=== PATIENT | female | born 1950 | race Caucasian/White ===

== ENCOUNTER 2023-09-11 06:10 | Day surgery (SDC) | payer MEDICARE, BC, SELFPAY ==
[2023-09-11] VITALS (10 sets, daily range): BP systolic 131–170; BP diastolic 57–98; PULSE 57–69; RESP 16; TEMP 36.3; O2SAT 94–97; BMI 31.7
--- OUTSIDE RECORDS SUMMARY | 2023-09-11 06:13 | XMS_ITS | Encounter Summary ---
Author Organization [facility] Address [address] [place] [address] Care Team Providers Care Pharmacist Technician Name Role Phone Brea Augustin P.A.-C. Primary Care Provider Encounter Details Date Type Department Care Team (Latest Contact Info) Description 08/14/2023 8:01 AM CDT - 08/14/2023 11:59 PM CDT Hospital Encounter Department of Laboratory Medicine in [place], [place] [address] [place] [address] Rubens Rivera Jr., D.O. [address] [place] [phone] Chronic Kidney Disease Stage 1 Glomerular Filtration Rate Greater Than 90; Hypertension And Chronic Kidney Disease Stage 1; Glomerulonephritis Focal Segment Chronic; Diabetes Mellitus Type 2 With Diabetic Nephropathy (HCC) Discharge Disposition: Home or Self Care Social History Tobacco Use Types Packs/Day Years Used Date Smoking Tobacco: Never Smokeless Tobacco: Never Alcohol Use Standard Drinks/Week Comments Yes 6 (1 standard drink = 0.6 oz pur e alcohol) 1-2 drinks per week on average [facility] Utilities Answer Date Recorded In the past 12 months has [employer], gas, oil, or water Jajah threatened to shut off services in your home? No 07/20/2023 Humiliation, Afraid, Rape, and Kick questionnair e Answer Date Recorded Within the last year, have y ou been afraid of your partner or ex-partner? No 08/19/2022 Within the last year, have y ou been humiliated or emotionally abused in other ways by your partner or ex-partner? No Within the last year, have y ou been kicked, hit, slapped, or otherwise physically hurt by your partner or ex-partner? No 08/19/2022 Within the last year, have y ou been raped or forced to have any kind of sexual activity by your partner or ex-partner? No 08/19/2022 Social Connection and Isolat ion Panel [NHANES] Answer Date Recorded In a typical week, how many times do you talk on the phone with family, friends, or neighbors? More than three times a week 08/19/2022 How often do you get togethe r with friends or relatives? More than three times a week 08/19/2022 How often do you attend chur ch or samaritan services? 1 to 4 times per year 08/19/2022 Do you belong to any clubs o r organizations such as adventism groups, unions, fraternal or athletic groups, or school groups? Yes 08/19/2022 How often do you attend meet ings of the clubs or organizations you belong to? More than 4 times per year 08/19/2022 Are you , , di vorced, , never , or living with a partner? 08/19/2022 AUDIT-C Answer Date Recorded Q1: How often do you have a drink containing alc ohol? 2-3 times a week 08/19/2022 Q2: How many drinks containi ng alcohol do you have on a typical day when you are drinking? 1 or 2 08/19/2022 Q3: How often do you have si x or more drinks on one occasion? Never 08/19/2022 Overall Financial Resource Strain (CARDIA) Answe r Date Recorded How hard is it for you to pa y for the very basics like food, housing, medical care, and heating? Somewhat hard 08/19/2022 PHQ-2 Answer Date Recorded PHQ-2 Score 0 07/16/2023 [facility] - Occupational Stress Questionnaire Answer Date Recorded Do you feel stress - tense, restless, nervous, or anxious, or unable to sleep at night because your mind is troubled all the time - these days? To some extent 08/19/2022 Exercise Vital Sign Answer Date Recorde d On average, how many days pe r week do you engage in moderate to strenuous exercise (like a brisk walk)? 3 days 08/19/2022 On average, how many minutes do you engage in exercise at this level? 30 min 08/19/2022 Hunger Vital Sign Answer Date Recorded Within the past 12 months, y ou worried that your food would run out before you got the money to buy more. Never true 07/20/19 24 Within the past 12 months, t he food you bought just didn't last and you didn't have money to get more. Never true 07/20/2023 PRAPARE - Transportation Answer Date Re corded In the past 12 months, has l ack of transportation kept you from medical appointments or from getting medications? No 07/08 In the past 12 months, has l ack of transportation kept you from meetings, work, or from getting things needed for daily living? No 07/20/2023 Nutrition Answer Date Recorded On average, how many serving s of fruits and vegetables do you eat per day (serving size is equal to 1 cup or approximately the size of a tennis ball)? 4-5 08/19/2022 Dental Answer Date Recorded Dental: Regular Dentist No 08/02/19 Employment Answer Date Recorded Employment status Retired 08/19/2022 Housing Stability Answer Date Recorded What is your living situation today? I have a [facility] place to live 07/20/2023 Education Answer Date Recorded What is the highest level of school you have completed or the highest degree you have received? Some college, no degree 01/27/2021 Sex and Gender Information Value Date Recorded Sex Assigned at Female 08/05/2021 8:00 AM CDT Gender Identity Female 08/05/2021 8:00 AM CDT Sexual Orientation Straight 08/05/2021 8: 00 AM CDT documented as of this encounter Medications at Time of Discharge Medication Sig Dispensed Refills Start Date End Date alcohol swabs pads, medicated Use as needed for diabetes control 1500 each 3 08/23/2022 amLODIPine (NORVASC) 10 mg tabletIndications:Hype rtension Essential Primary Take 1 tablet (10 mg total) by mouth daily. 90 tablet 3 11/07/2022 anastrozole (ARIMIDEX) 1 mg tablet Take 1 mg by mouth daily. Swallow whole with a drink of water. aspirin [address] tablet aspirin 81 mg oral enteric coated tablet daily 01/06/2010 blood sugar diagnostic strips 1 test daily. 100 test 3 08/31/2022 CALCIUM CARB/VIT D3/MINERALS (CALCIUM-VITAMIN D ORAL) Calcium 600+D daily 01/06/2010 cephalexin (KEFLEX) 500 mg capsule Take 2,000 mg by mouth once. 1 hour before dental appointment 08/10/2022 cholecalciferol, vitamin D3, 25 mcg (1,000 Unit) tablet Take 25 mcg by mouth daily. DIPHENHYDRAMINE HCL (BENADRYL ALLERGY ORAL) Benadryl Allergy Sinus as needed 01/06/2010 glipiZIDE (GLUCOTROL XL) 10 mg 24 hr tablet Take 1 tablet (10 mg total) by mouth daily with breakfast. 90 tablet 3 12/04/2022 glipiZIDE (GLUCOTROL XL) 5 mg 24 hr tabletIndications:Diab etes Mellitus Type 2 Hyperglycemia (HCC) Take 1 tablet (5 mg total) by mouth daily. Take at dinner. 90 tablet 3 12/04/2022 guaiFENesin (MUCINEX) 600 mg 12 hr tablet Take 600 mg by mouth 2 (two) times a day as needed for cough. loratadine (for_CLARITIN) 10 mg tablet Take 1 tablet by mouth as needed. 03/02/2014 losartan (COZAAR) 100 mg tabletIndications:Hype rtension Essential Primary Take 1 tablet (100 mg total) by mouth daily. 90 tablet 3 09/26/2022 metFORMIN (GLUCOPHAGE) 1,000 mg tabletIndications:Diab etes Mellitus Type 2 Hyperglycemia (HCC) Take 1 tablet (1,000 mg total) by mouth 2 (two) times a day with meals. 180 tablet 3 10/09/2022 omega 6-jow-rnv-fish oil 100-160-1,000 mg capsule Take by mouth daily. 03/02/2014 simvastatin (ZOCOR) 20 mg tabletIndications:Hype rlipidemia take 1 tablet at bedtime 90 tablet 3 05/16/2023 UNABLE TO FIND Take 1 each by mouth daily. Med Name: Arthrozene VITAMIN B COMPLEX ORAL Take 2 capsules by mouth daily. lancets 1 each daily. 30 each 11 08/31/2022 08/31/2023 documented as of this encounter Plan of Treatment Upcoming Encounters Date Type Department Care Team (Late st Contact Info) Description 10/08/2023 10:40 AM CDT Office Visit Department of Community Internal Medicine in [place], [place] [address] [phone] Brea Augustin P.A.-C. 300 [facility] [address] [phone] documented as of this encounter Procedures Procedure Name Priority Date/Time Associated Diagnosis Comments ALBUMIN, RANDOM, U Routine 08/14/2023 8: 08 AM CDT Chronic Kidney Disease Stage 1 Glomerular Filtration Rate Greater Than 90 Hypertension And Chronic Kidney Disease Stage 1 Glomerulonephritis Focal Segment Chronic Diabetes Mellitus Type 2 With Diabetic Nephropathy (HCC) URINALYSIS WITH MICROSCOPIC Routine 08/14/2023 8:08 AM CDT Chronic Kidney Disease Stage 1 Glomerular Filtration Rate Greater Than 90 Hypertension And Chronic Kidney Disease Stage 1 Glomerulonephritis Focal Segment Chronic Diabetes Mellitus Type 2 With Diabetic Nephropathy (HCC) documented in this encounter Results * (ABNORMAL) Urinalysis, with Microscopic: Urine, Voided (08/14/2023 8:08 AM CDT) Source Urine, Urine, Voided 08/14/2023 8:30 AM CDT FB60 Clarity Clear Clear 08/14/2023 8:32 AM CDT FB60 Color Yellow 08/14/2023 8:32 AM CDT FB60 Comment: ----REFERENCE VALUE---- Colorless Yellow Mey Blood Negative Negative 08/14/2023 8:32 AM CDT FB60 Nitrite Negative Negative 08/14/2023 8:32 AM CDT FB60 Leukocyte Esterase Small(A) Negative 08/14/2023 8:32 AM CDT FB60 Protein 100(A) mg/dL 08/14/2023 8:32 AM CDT FB60 Comment: ----REFERENCE VALUE---- Negative Trace Glucose Negative Negative mg/dL 08/14/2023 8:32 AM CDT FB60 Ketones, QI(U) Negative Negative mg/dL 08/14/2023 8:32 AM CDT FB60 Bilirubin Negative Negative 08/14/2023 8:32 AM CDT FB60 pH 6.5 5.0 - 8.0 08/14/2023 8:32 AM CDT FB60 Specific [place] 1.020 1.001 - 1.035 08/14/2023 8:32 AM CDT FB60 Urobilinogen 0.2 0.2 - 1.0 mg/dL 08/14/2023 8:32 AM CDT FB60 White Blood Cells Occ-3 /hpf 08/14/2023 8:55 AM CDT FB60 Comment: ----REFERENCE VALUE---- Males: 0-3 Females: 0-10 Unknown: 0-10 Red Blood Cells Occ-2 0 - 2 /hpf 8:55 AM CDT FB60 Squamous Cells Occ-3 /hpf 08/14/2023 8:55 AM CDT FB60 Urine (Urine, Voided) 08/14/2023 8:08 AM CDT 08/14/2023 8:30 AM CDT Rubens Rivera Jr., D.O. LAB URINE OR DERABLES [facility] [address] [place] [address], [facility] FB60 [facility] [place] [address] * (ABNORMAL) Albumin, Random, Urine (08/14/2023 8:08 AM CDT) Microalbumin 275.0 mg/L 08/14/2023 2:01 PM CDT OWAT Creatinine 114 mg/dL 08/14/2023 2:01 PM CDT [facility] Albumin/Creatinin e Ratio 241(H) <25 mg/g 08/14/2023 2:01 PM CDT [facility] Urine (Urine, Voided) 08/14/2023 8:08 AM CDT 08/14/2023 1:14 PM CDT Lucia Shaver Jr..O. LAB URINE OR DERABLES [facility] [address] [place] [address], [facility] OWAT [facility] [place] [address] [place] [address] documented in this encounter Visit Diagnoses Diagnosis Chronic Kidney Disease Stage 1 Glomerular Filtration Rate Greater Than 90 Hypertension And Chronic Kidney Disease Stage 1 Glomerulonephritis Focal Segment Chronic Diabetes Mellitus Type 2 With Diabetic Nephropathy (HCC) documented in this encounter Additional Health Concerns Assessment Noted Time PHQ-9 Depression Total Score: 1 06/27/19 19 8:44 AM CDT documented as of this encounter Care Teams Pharmacist Technician Relationship Specialty Start Date End Date Brea Augustin P.A.-C. [address] [place] [address] [place] [phone] PCP - General 04/13/22 documented as of this encounter
--- OUTSIDE RECORDS SUMMARY | 2023-09-11 06:13 | XMS_ITS | Encounter Summary ---
Author Organization [facility] Address [address] [place] [address] Care Team Providers Care Content Development Manager Name Role Phone Brea Augustin P.A.-C. Primary Care Provider Reason for Visit * Appointment Request (Routine) - Closed Specialty Diagnoses / Procedures Referred By Karen lee Referred To Contact Nephrology and Hypertension Referral ID Status Reason Start Date Expiration Date Visits Re quested Visits Authorized [id number] Closed 07/19/2023 07/18/2024 1 1 Encounter Details Date Type Department Care Team (Latest Contact Info) Description 08/27/2023 1:30 PM CDT External Outreach Division of Nephrology and Hypertension in [place], [place] [address] [place] [address] Rubens Rivera Jr., D.O. 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 1 to 4 times per year 08/19/2022 Do you belong to any clubs o r organizations such as spiritism groups, unions, fraternal or athletic groups, or [...] Answer Date Recorded PHQ-2 Score 0 07/16/2023 [facility] - Occupational [...] Date Recorded Dental: Regular Dentist No 08/02/19 22 Employment Answer Date Recorded Employment status Retired 08/19/2022 Housing Stability Answer Date Recorded What is your living situation today? I have a [facility] place to live 07/20/2023 Education Answer Date [...] AM CDT documented as of this encounter Last Filed Vital Signs Vital Sign Reading Time Taken Comments Blood Pressure 135/64 08/27/2023 1:40 PM CDT Pulse 64 08/27/2023 1:40 PM CDT Temperature - - Respiratory Rate - - Oxygen Saturation - - Inhaled Oxygen Concentration - - Weight 76.3 kg (168 lb 3.4 oz) 08/27/2023 1:40 P M CDT Height 157.4 cm (5' 1.97) 08/27/2023 1:40 PM CD T Body Mass Index 30.8 08/27/2023 1:40 PM CDT documented in this encounter Progress Notes * Rubens Rivera Jr., D.ONiya - 08/27/2023 1:30 PM CDT Referring Provider: Brea Augustin P.A.-C. SUBJECTIVE REASON FOR VISIT [facility] Follow-up regards CKD, on the background of biopsy-proven focal sclerosis, diabetes mellitus hypertension HISTORY OF PRESENT ILLNESS Ms. Clarke is a 73 y.o. 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 She is struggling with a cough. This has been going on now for over 2-1/2 weeks. She has a greenishsputum production. She was prescribed nasal Atrovent, which she can not orchestrate due to hand weakness. Similarly, she could not use the Flonase either. She is using some Mucinex, and non sedating antihistamines as Claritin. This is not helping. She has not had fevers or chills. She has not shortof breath. She does not have allergies to sulfa medications. Her blood pressures been reasonable, she has had no orthostatic issues. She is careful with the sodium has a bit of left lower extremity lymphedema, and has varicose veins on the left side. She has not had orthostatic issues. She has had no hypoglycemic events recently in her hemoglobin A1c is 7.6%. She just got a steroid injection in her left knee. Constitutionally she feels relatively well. I note that she is visited with our oncologists, and noevidence of recurrence has been noted, she is on Arimidex. 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 Swallow whole with a drink of water.,Disp: , Rfl: aspirin [address] tablet, aspirin 81 mg oral enteric coated tablet daily, Disp: , Rfl: blood sugar diagnostic strips, 1 test daily., Disp: 100 test, Rfl: 3 CALCIUM CARB/VIT D3/MINERALS (CALCIUM-VITAMIN D ORAL), Calcium 600+D daily, Disp: , Rfl: cephalexin (KEFLEX) 500 mg capsule, Take 2,000 mg by mouth once. 1 hour before dental appointment, Disp: , Rfl: cholecalciferol, vitamin D3, 25 mcg (1,000 Unit) tablet, Take 25 mcg by mouth daily., Disp: , Rfl: DIPHENHYDRAMINE HCL (BENADRYL ALLERGY ORAL), Benadryl Allergy Sinus as needed, Disp: , Rfl: glipiZIDE (GLUCOTROL XL) 10 mg 24 hr tablet, Take 1 tablet (10 mg total) by mouth daily with breakfast., Disp: 90 tablet, Rfl: 3 glipiZIDE (GLUCOTROL XL) 5 mg 24 hr tablet, Take 1 tablet (5 mg total) by mouth daily. Take at dinner., Disp: 90 tablet, Rfl: 3 guaiFENesin (MUCINEX) 600 mg 12 hr tablet, Take 600 mg by mouth 2 (two) times a day as needed for cough., Disp: , Rfl: ipratropium (ATROVENT) 21 mcg (0.03 %) nasal spray, Administer 2 sprays into each nostril 2 (two) times a day., Disp: 30 mL, Rfl: 12 lancets, 1 each daily., Disp: 30 each, Rfl: 11 loratadine (for_CLARITIN) 10 mg tablet, Take 1 tablet by mouth as needed. , Disp: , Rfl: losartan (COZAAR) 100 mg tablet, Take 1 tablet (100 mg total) by mouth daily., Disp: 90 tablet, Rfl: 3 metFORMIN (GLUCOPHAGE) 1,000 mg tablet, Take 1 tablet (1,000 mg total) by mouth 2 (two) times a daywith meals., Disp: 180 tablet, Rfl: 3 omega 4-ipr-ite-fish oil 100-160-1,000 mg capsule, Take by mouth daily. , Disp: , Rfl: simvastatin (ZOCOR) 20 mg tablet, take 1 tablet at bedtime, Disp: 90 tablet, Rfl: 3 sulfamethoxazole-trimethoprim (BACTRIM DS) 800-160 mg per tablet, Take 1 tablet by mouth 2 (two) times a day for 5 days., Disp: 10 tablet, Rfl: 0 UNABLE TO FIND, Take 1 each by mouth daily. Med Name: Arthrozene, Disp: , Rfl: VITAMIN B COMPLEX ORAL, Take 2 capsules by mouth daily., Disp: , Rfl: REVIEW OF SYSTEMS All other systems reviewed and are negative. OBJECTIVE BP 135/64 Pulse 64 Ht 157.4 cm Wt 76.3 kg BMI 30.80 kg/m?? PHYSICAL EXAMINATION General: Awake alert oriented HEENT: MAYA, EOMI, Mucous membranes moist, no oral lesions Neck: No Masses, No Bruits Lungs: Clear to ascultation Heart: Regular Rate and Rhythm, No ectopy Murmurs or rubs Abdomen: Soft, Non-tender Extremities: No cyanosis, No clubbing: No edema Neuro: Cranial Nerves intact, Gait is normal, strength grossly normal Skin: no suspicious lesions identified Psychiatric: Normal affect DIAGNOSTICS Note serum creatinine normal at 0.6 mg/dL, excellent lipid panel, hemoglobin A1c 7.6% microalbumin to creatinine ratio 171 milligrams/gram ASSESSMENT / PLAN #1 Hypertension And Chronic Kidney Disease Stage 1 This is on the background of biopsy-proven focal sclerosis, as well as mild diabetic nephropathy. She does have microalbuminuria. Going forward: 1. Goal blood pressures less than 120s over 80s 2. Low-sodium diet less than 2500 mg sodium per day 3. Goal glycosylated hemoglobin less than 8% 4. No NSAIDs or Epps 2 inhibitors 5. Return to Nephrology Clinic in 6 months. #2 Diabetes Mellitus Type 2 With Diabetic Nephropathy (HCC) Excellent glycemic control I congratulated her. 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 Total time: 30 minutes Counseling Time: 25 minutes Rubens Rivera Jr., D.O. documented in this encounter Plan of Treatment Upcoming Encounters Date Type Department Care Team (Late st Contact Info) Description 10/08/2023 10:40 AM CDT Office Visit Department of Community Internal Medicine in [place], [place] [address] [place] [phone] Brea Augustin P.A.-C. 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 (HCC) Expected: 02/27/2024, Expires: 08/26/2024 Hemoglobin A1c Lab Routine Hypertension And Chronic Kidney Disease Stage 1 Diabetes Mellitus Type 2 With Diabetic Nephropathy (HCC) 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 (HCC) Expected: 02/27/2024, Expires: 08/26/2024 Iron and Total Iron-Binding Capacity Lab Routine Hypertension And Chronic Kidney Disease Stage 1 Diabetes Mellitus Type 2 With Diabetic Nephropathy (HCC) 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 (HCC) Expected: 02/27/2024, Expires: 08/26/2024 Lipid Panel Lab Routine Hypertension And Chronic Kidney Disease Stage 1 Diabetes Mellitus Type 2 With Diabetic Nephropathy (HCC) 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 (HCC) Expected: 02/27/2024, Expires: 11/26/2024 Albumin, Random, Urine Lab Routine Hypertension And Chronic Kidney Disease Stage 1 Diabetes Mellitus Type 2 With Diabetic Nephropathy (HCC) 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 (HCC) Expected: 02/27/2024, Expires: 08/26/2024 Parathyroid Hormone (PTH) Lab Routine Hypertension And Chronic Kidney Disease Stage 1 Diabetes Mellitus Type 2 With Diabetic Nephropathy (HCC) 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 (HCC) Expected: 02/27/2024, Expires: 08/26/2024 Renal Function Panel Lab Routine Hypertension And Chronic Kidney Disease Stage 1 Diabetes Mellitus Type 2 With Diabetic Nephropathy (HCC) 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 (HCC) Expected: 02/27/2024, Expires: 08/26/2024 Urinalysis, with Microscopic: Urine, Voided Lab Routine Hypertension And Chronic Kidney Disease Stage 1 Diabetes Mellitus Type 2 With Diabetic Nephropathy (HCC) 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 [address] [place] [phone] PCP - General 04/13/22 documented as of this encounter
--- OUTSIDE RECORDS SUMMARY | 2023-09-11 06:13 | XMS_ITS | Clinical Summary ---
Author Organization [email or web address] [facility] Address [place], [place] [address] Care Team Providers Care Hooker Off Name Role Phone Brea Augustin PA-C Primary Care Provider [phone] Kenia Rdz RN Unavailable Mukund Mckeon LINE DANCER Unavailable [phone] Sonia Ceballos GAGGERMAN Unavailable Selina Partida MD Unavailable [phone] Allergies Active Allergy Reactions Criticality Noted Date Comments Amoxicillin Rash 03/13/2014 Cefadroxil Rash 03/13/2014 Latex Rash 03/06/2018 Penicillins Hives 03/06/2018 Sodium Hypochlorite Solution Other - Jeff cribe In Comment Field 06/26/2018 Adhesive *Unknown 03/13/2014 Medications Medication Sig Dispensed Refills Start Date End Date Status loratadine (CLARITIN) 10 mg tablet Take 10 mg by mouth once daily if needed. Active metFORMIN (GLUCOPHAGE) 500 mg tablet Take 1,000 mg by mouth 2 times daily with meals. Active losartan (COZAAR) 100 mg tablet Take 100 mg by mouth once daily. Active simvastatin (ZOCOR) 20 mg tablet Take 20 mg by mouth at bedtime. Active glipiZIDE (GLUCOTROL XL) 10 mg Extended-Release tablet Take 5 mg by mouth 2 times daily with meals. Active CALCIUM CARBONATE/VITAMIN D3 (CALCIUM 600 + D,3, ORAL) Take 1 tablet by mouth once daily. Active aspirin (ECOTRIN) 81 mg enteric coated tablet Take 81 mg by mouth once daily. Active diphenhydrAMINE (BENADRYL) 25 mg capsule Take 25 mg by mouth once daily if needed. Active omega 5-jld-xoi-fish oil (FISH OIL) 100-160-1,000 mg cap Take 1 capsule by mouth once daily. Active amLODIPine (NORVASC) 10 mg tablet Take 10 mg by mouth once daily. 11/07/2022 Active cholecalciferol (VITAMIN D3) 1,000 unit tablet Take 25 mcg by mouth once daily. Active guaiFENesin (MUCINEX) 600 mg Extended-Release tablet Take 600 mg by mouth 2 times daily if needed. Active VITAMIN B COMPLEX ORAL Take 2 Capsules by mouth once daily. Active cephalexin (KEFLEX) 500 mg capsule Take 2,000 mg by mouth. 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 90 Tablet 3 01/30/2023 Active ipratropium (ATROVENT NASAL) 21 mcg (0.03 %) nasal spray Inhale 2 Sprays into affected nostril(s). 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 01/02/2023 Cancer Staging:Pathologic stage from 01/30/2023:Stage IA(pT1c, pN0(sn), cM0, G2, ER+, MO-, HER2-) - Signed by Selina Partida MD on 01/30/2023 Encounters Date Type Department Care Team Description 08/24/2023 Telephone [facility] [address] [place] [address] Sonia Ceballos NP Appointment 08/23/2023 2:00 PM CDT Office Visit [facility] [address] [place] [phone] Selina Partida MD Follow Up (Malignant neoplasm of central portion of left breast in female, estrogen receptor positive (HC)//) 08/23/2023 Travel from Last 3 Months Social History Tobacco Use Types Packs/Day Years Used Date Smoking Tobacco: Never Alcohol Use Standard Drinks/Week Comments No 0 (1 standard drink = 0.6 oz pur e alcohol) Social Connections Answer Date Recorded Frequency of Communication with Friends and Fami ly Not on file 02/21/2023 Sex and Gender Information Value Date Recorded Sex Assigned at Not on file Gender Identity Not on file Sexual Orientation Not on file Obstetrics History Last Filed Vital Signs Vital Sign Reading Time Taken Comments Blood Pressure 144/67 08/23/2023 1:47 PM CDT Pulse 70 08/23/2023 1:47 PM CDT Temperature 36.4 ??C (97.6 ??F) 08/23/2023 1:47 PM CD T Respiratory Rate 18 08/23/2023 1:47 PM CDT Oxygen Saturation 97% 08/23/2023 1:47 PM CDT Inhaled Oxygen Concentration - - Weight 76.7 kg (169 lb) 08/23/2023 1:47 PM CDT Height 157 cm (5' 1.81) 12/14/2022 7:35 AM CDT Body Mass Index 31.1 12/14/2022 7:35 AM CDT Plan of Treatment Upcoming Encounters Date Type Department Care Team (Late st Contact Info) Description 10/17/2023 8:00 AM CDT Hospital Encounter [facility] [address], [place] [address] Ashely Ayers MD [address] [place] [phone] 10/17/2023 8:00 AM CDT - 10/17/2023 8:40 AM CDT Surgery [facility] [address] [place] [address] Ashely Ayers MD [address] [place] [address] COLONOSCOPY 02/25/2024 9:30 AM MARINE ELECTRICIAN HELPER Office Visit [address] [place] [phone] Selina Partida MD [address] [place] [id number] Scheduled Procedures Name Priority Associated Diagnoses Date/Ti me COLONOSCOPY SCREENING 10/17/2023 8:00 AM CDT Health Maintenance Due Date Last Done Comments Pneumococcal series for age 65+ (1 of 2 - PCV) 1954 Tdap 1959 Depression screening for age 12+ 1960 BMI (ht and wt on same day) for age 18+ 1966 Hepatitis C screening for ag e 18-79 1966 Zoster (shingles) series for age 50+ (1 of 2) 1967 Tetanus booster 1968 Lipids for age 45-75 1993 Medicare Wellness for age 65+ 2013 COVID-19 vaccine series ( season) 2023 02/07/2023, 02/14/2022, 08/01/2021, Additional history exists Influenza for age 65+ 12/09/2023 Colonoscopy through age 75 03/11/2028 03/11/2018 DEXA/DXA scan for age 65+ Completed 02/07/2023 Medical Devices Implanted Type Area News Producer Device Identifier Shelf Expiration Date Model / Serial / Lot Cement Simplex W/ Tobramycin - [id number] Implanted:Qty: 2 on 03/17/2014 by Randy Sierra MD at [facility] Right: Knee D-DAVID 05/10/2015 [id number] / / [id number] - [id number] Implanted:Qty: 1 on 03/17/2014 by Randy Sierra MD at [facility] Right: Knee DEPUY 05/10/2023 [id number] / / [id number] Description:Femoral Posterio r Stabilized [id number] - [id number] Implanted:Qty: 1 on 03/17/2014 by Randy Sierra MD at [facility] Right: Knee DEPUY 01/08/2024 [id number] / / [id number] Description:Attune Tibial Ba se Fixed Bearing [id number] - [id number] Implanted:Qty: 1 on 03/17/2014 by Randy Sierra MD at [facility] Right: Knee DEPUY 04/09/2018 [id number] / / [id number] Description:Attune Tibial In sert Fixed Bearing Posterior Stabilized [id number] - [id number] Implanted:Qty: 1 on 03/17/2014 by Randy Sierra MD at [facility] Right: Knee DEPUY 07/08/2018 [id number] / / [id number] Description:Attune Patella M edialized Dome Procedures Procedure Name Priority Date/Time Associated Diagnosis Comments XR DXA BONE DENSITY 2 SITES AXIAL Routine 02/07/2023 1:21 PM CDT Malignant neoplasm of central portion of left breast in female, estrogen receptor positive (HC) COLONOSCOPY 03/11/2018 7:12 AM MARINE ELECTRICIAN HELPER from Last 3 Months or Most Recently Relevant to Health Maintenance Results * (ABNORMAL) XR DXA BONE DENSITY 2 SITES AXIAL (02/07/2023 1:21 PM CDT) Anatomical Region Laterality Modality Spine, HIPS, HIPL, HIPR Computed Radiography Impressions 02/08/2023 2:11 PM CDT Osteopenia. ?? Risk of fracture is not elevated. RECOMMENDATIONS: The National Osteoporosis Foundation recommends pharmacologic treatment for patients with T-scores of -2.5 or less, patients with prior history of fragility fractures, or patients with 10-year probability of greater than 3% at hips or greater than 20% of suffering major osteoporotic fractures. Recommend continued optimization of calcium and vitamin D intake through dietary means and/or supplementation and regular exercise. Repeat scan recommended in 2 years. ?? Narrative 02/08/2023 2:11 PM CDT For Patients: Results are automatically released to your [email or web address]) account once available, in compliance with federal regulations. This means that you may see your results before your provider has had a chance to review them. Please allow 2-3 business days for your provider to comment on the results. XR DXA Bone Mineral Density (BMD) EXAM LOCATION: [address] [phone] PATIENT NAME: Tamara Clarke DATE OF : 1950 EXAM DATE: 02/07/2023 REQUESTING PROVIDER: Selina Partida ?? 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 It is not possible to compare data generated on one scanner to data from another because there are not standards in DXA equipment. This applies even if the two scanners are made by the same cheese weigher. PROCEDURE: Dual-energy x-ray absorptiometry performed with routine technique. Reporting is completed in the form of a T-score. The T-score represents the standard deviation from peak bone mass based on young healthy adult. A Z-score is used for diagnosis in premenopausal women, and for men under the age of 50. FINDINGS: RESULT LUMBAR SPINE L1 - L4 BMD: 1.352 g/cm2 T-Score: + 1.4 RESULTS FEMUR Left femoral neck BMD: 0.855 g/cm2 T-Score: - 1.3 Right femoral neck BMD: 0.888 g/cm2 T-Score: - 1.1 Left hip BMD: 1.017 g/cm2 T-Score: + 0.1 Right hip BMD: 1.022 g/cm2 T-Score: + 0.1 WHO criteria: Normal: T-score at or above -1 SD Osteopenia: T-score between -1.1 and -2.4 SD Osteoporosis: T-score at or below -2.5 SD FRAX RISK CALCULATION (USED FOR OSTEOPENIA ONLY): 10-year probability of major osteoporotic fracture: 10.2%. 10-year probability of hip fracture: 1.8%. Selina Partida MD DEXA * COLONOSCOPY (03/11/2018 7:12 AM MARINE ELECTRICIAN HELPER) 03/11/2018 7:12 AM MARINE ELECTRICIAN HELPER Narrative Transcriptions Darshan Reyes MD - 03/11/2018 7:47 AM CST Patient Name: Tamara Clarke Procedure Date: 03/11/2018 Gender: Female Date of : 1950 Admit Type: Ambulatory Procedure: Colonoscopy Proceduralist: Rylan [facility] Indications/Pre-Op Diagnosis: Screening for colorectal malignantneoplasm Medications: Propofol per Anesthesia Procedure Description: The patient had risks, benefits and alternatives explained to andgave informed consent. The patient had a stable cardiopulmonary status and judged an adequate candidate for conscious sedation. The colonoscope was passed through the anus and advanced to thececum, identified by appendiceal orifice and ileocecal valve. Thecolonoscopy was performed without difficulty. The patient tolerated the procedure well. The quality of the bowel preparation was excellent. Complications: No immediate complications. Estimated Blood Loss & Specimen: Estimated blood loss: none. Specimen collected - Yes and sent to Laboratory Findings: The perianal and digital rectal examinations were normal. A few small-mouthed diverticula were found in the sigmoid colon. A 6 mm polyp was found in the splenic flexure. The polyp was sessile. The polyp was removed with a cold snare. Resection and retrieval were complete. Impressions/Post-Op Diagnosis: - Diverticulosis in the sigmoid colon. - One 6 mm polyp at the splenic flexure, removed with a cold snare. Resected and retrieved. Recommendation: - Telephone my office for pathology results in 1 week. Moderate Sedation: Deep sedation per anesthesia Rylan Reyes, 03/11/2018 7:47:31 AM This report has been signed electronically. Note Initiated On: 03/11/2018 7:12 AM Darshan Reyes MD PROCEDURE ORD from Last 3 Months or Most Recently Relevant to Health Maintenance Advance Directives Documents on File Type Date Recorded Patient Security Associate Expl anation Healthcare Directive 04/11/2017 018 * Full Code (Latest Code Status on File) Date Activated Date Inactivated Comments 01/01/2023 10:15 AM 01/01/2023 5:11 PM Question Answer Comments Code Status Discussion: Reviewed Preferences * Full Code Date Activated Date Inactivated Comments 12/25/2022 6:36 AM 12/25/2022 6:59 PM Question Answer Comments Code Status Discussion: Reviewed Preferences * Full Code Date Activated Date Inactivated Comments 03/11/2018 6:37 AM 03/11/2018 11:08 AM Care Teams Hooker Off Relationship Specialty Start Date End Date Brea Augustin PA-C [address] [place] [phone] PCP - General Physician Shredding Specialist 12/05/22 Kenia Rdz, RN [address] [place] [address] Nurse Navigator - Oncology Registered Nurse 01/17/23 Mukund Mckeon LSW [address] [place] [address] Carpenter Helper Hematology and Oncology 01/30/23 Sonia Ceballos, GAGGERMAN [address] [place] [address] Nurse Practitioner Hematology and Oncology 01/30/23 Selina Partida MD [address] [place], [place] [phone] Medical Oncologist Hematology and Oncology 01/30/23
--- OUTSIDE RECORDS SUMMARY | 2023-09-11 06:13 | XMS_ITS ---
Author Organization [facility] Address [address] [place] [address] Care Team Providers Care Spiral Binder Name Role Phone Unavailable Unavailable Unavailable Surgery Details Not on file Complications Check Surgery Details section. Procedure Estimated Blood Loss Check Surgery Details section. Procedure Findings Check Surgery Details section. Procedure Specimens Taken Check Surgery Details section.
--- OUTSIDE RECORDS SUMMARY | 2023-09-11 06:13 | XMS_ITS | Clinical Summary ---
Author Organization [facility] Address [address] [place] [address] Care Team Providers Care Cane Cutter Name Role Phone Brea Augustin P.A.-C. Primary Care Provider Source Comments Patient records contain information from all sites at [facility]. For routine questions regarding patient records, call [phone] during business hours, M-F 8:00 AM - 5:00 PM Central Time. Record requests for emergency care only can be directed to [phone] at any time.[facility] Allergies Active Allergy Reactions Criticality Noted Date Comments Adhesive Rash 03/13/2014 Adhesive Tape-Silicones Other (see comments) Amoxicillin Rash 07/01/2009 Bleach (Sodium Hypochlorite) Other (see comments) 06/26/2018 Cefadroxil Rash 07/01/2009 Latex Rash 08/24/2005 Penicillins Hives (Reselect Reaction) 02/25/2004 Sodium Hypochlorite Solution Other (see comments) 06/26/2018 Tree And Shrub Pollen Other (see comments) 06/08 Casey trees Medications Medication Sig Dispensed Refills Start Date End Date Status DIPHENHYDRAMINE HCL (BENADRYL ALLERGY ORAL) Benadryl Allergy Sinus as needed 01/06/[address] tablet aspirin 81 mg oral enteric coated tablet daily 01/06/2010 Active CALCIUM CARB/VIT D3/MINERALS (CALCIUM-VITAMIN D ORAL) Calcium 600+D daily 01/06/2010 Active loratadine (for_CLARITIN) 10 mg tablet Take 1 tablet by mouth as needed. 03/02/2014 Active omega 4-jjz-wwo-fish oil 100-160-1,000 mg capsule Take by mouth daily. 03/02/2014 Active cholecalciferol, vitamin D3, 25 mcg (1,000 Unit) tablet Take 25 mcg by mouth daily. Active UNABLE TO FIND Take 1 each by mouth daily. Med Name: Arthrozene Active guaiFENesin (MUCINEX) 600 mg 12 hr tablet Take 600 mg by mouth 2 (two) times a day as needed for cough. Active cephalexin (KEFLEX) 500 mg capsule Take 2,000 mg by mouth once. 1 hour before dental appointment 08/10/2022 Active alcohol swabs pads, medicated Use as needed for diabetes control 1500 each 3 08/23/2022 Active blood sugar diagnostic strips 1 test daily. 100 test 3 08/31/2022 Active losartan (COZAAR) 100 mg tabletIndications:H ypertension Essential Primary Take 1 tablet (100 mg total) by mouth daily. 90 tablet 3 09/26/2022 Active metFORMIN (GLUCOPHAGE) 1,000 mg tabletIndications:D iabetes Mellitus Type 2 Hyperglycemia (HCC) Take 1 tablet (1,000 mg total) by mouth 2 (two) times a day with meals. 180 tablet 3 10/09/2022 Active amLODIPine (NORVASC) 10 mg tabletIndications:H ypertension Essential Primary Take 1 tablet (10 mg total) by mouth daily. 90 tablet 3 11/07/2022 Active glipiZIDE (GLUCOTROL XL) 5 mg 24 hr tabletIndications:D iabetes Mellitus Type 2 Hyperglycemia (HCC) Take 1 tablet (5 mg total) by mouth daily. Take at dinner. 90 tablet 3 12/04/2022 Active glipiZIDE (GLUCOTROL XL) 10 mg 24 hr tablet Take 1 tablet (10 mg total) by mouth daily with breakfast. 90 tablet 3 12/04/2022 Active VITAMIN B COMPLEX ORAL Take 2 capsules by mouth daily. Active simvastatin (ZOCOR) 20 mg tabletIndications:H yperlipidemia take 1 tablet at bedtime 90 tablet 3 05/16/2023 Active anastrozole (ARIMIDEX) 1 mg tablet Take 1 mg by mouth daily. Swallow whole with a drink of water. Active ipratropium (ATROVENT) 21 mcg (0.03 %) nasal spray Administer 2 sprays into each nostril 2 (two) times a day. 30 mL 12 08/20/2023 Active lancets 1 each daily. 30 each 11 08/31/2022 4 sulfamethoxazole-tr imethoprim (BACTRIM DS) 800-160 mg per tablet Take 1 tablet by mouth 2 (two) times a day for 5 days. 10 tablet 08/27/2023 4 Active Problems Problem Noted Date Diagnosed Date Bronchitis 08/27/2023 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 01/02/2023 Cancer Staging:Pathologic stage from 12/25/2022:Stage IA(pT1c, pN0(sn), cM0, G2, ER+, DC-, HER2-) - Unsigned Asymptomatic Varicose Veins Of Left Lower Extrem ity 08/01/2021 Dermatitis Atopic 08/01/2021 Obesity Body Mass Index 30-39.9 Adult 07/22/2020 Glomerulonephritis Focal Segment Chronic 015 Microalbuminuria 08/19/2014 Keratosis Actinic 01/21/2013 Hyperlipidemia 02/24/2004 Hypertension And Chronic Kidney Disease Stage 1 02/24/2004 Diabetes Mellitus Type 2 With Diabetic Nephropat hy Resolved Problems Problem Noted Date Diagnosed Date Resolved Date Personal History Of Infectio us And Parasitic Disease (COVID-19) 12/17/2020 08/23/2022 Diabetes Mellitus Type 2 10/07/2019 Keratosis Seborrheic 01/21/2013 020 Chronic Kidney Disease Stage 1 Glomerular Filtration Rate Greater Than 90 06/29/2011 07/20/19 24 Hypertension Heart Disease W ith Congestive Heart Failure 02/24/2004 10/07/2019 Encounters Date Type Department Care Team Description 09/10/2023 Refill Department of Community Internal Medicine in [place], [place] [address] [place] [address] Brea Augustin P.A.-C. Med Refill 08/27/2023 1:30 PM CDT External Outreach Division of Nephrology and Hypertension in [place], [place] [address] [place] [address] Rubens Rivera Jr., D.O. Hypertension And Chronic Kidney Disease Stage 1 (Primary Dx); Diabetes Mellitus Type 2 With Diabetic Nephropathy (HCC); 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 (HCC); Bronchitis 08/20/2023 3:40 PM CDT Office Visit Department of Community Internal Medicine in [address] [address] Brea Augustin P.A.-C. DeQuervain's Tenosynovitis (Primary Dx); Rhinitis Allergic; Diabetes Mellitus Type 2 With Diabetic Nephropathy (HCC) 08/14/2023 8:01 AM CDT - 08/14/2023 11:59 PM CDT Hospital Encounter Department of Laboratory Medicine in [address] [address] Rubens Rivera Jr., D.O. Chronic Kidney Disease Stage 1 Glomerular Filtration Rate Greater Than 90; Hypertension And Chronic Kidney Disease Stage 1; Glomerulonephritis Focal Segment Chronic; Diabetes Mellitus Type 2 With Diabetic Nephropathy (HCC) Discharge Disposition: Home or Self Care 08/14/2023 8:01 AM CDT - 08/14/2023 11:59 PM CDT Hospital Encounter Department of Laboratory Medicine in [address] [address] Rubens Rivera Jr., D.O. Chronic Kidney Disease Stage 1 Glomerular Filtration Rate Greater Than 90; Hypertension And Chronic Kidney Disease Stage 1; Glomerulonephritis Focal Segment Chronic; Diabetes Mellitus Type 2 With Diabetic Nephropathy (HCC) Discharge Disposition: Home or Self Care 07/20/2023 1:00 PM CDT Office Visit Department of Community Internal Medicine in [address] [address] Brea Augustin P.A.-C. DeQuervain's Tenosynovitis (Primary Dx); Screening Cancer Colon; Hypertension And Chronic Kidney Disease Stage 1 from Last 3 Months Immunizations Name Administration Dates Next Due H1N1 All Forms 04/29/2009 HZV (ZOSTAVAX) 01/21/2013 HepA Adult 11/27/2006 HepA Pediatric/Adolescent 08/20/2023(Deferred: P atient decision) HepA, Pediatric Unspecified 05/22/2006 HepB, Unspecified 05/22/2006,06/24/2005,05/15/19 06 Influenza Split 01/28/2005 Influenza, Quadrivalent, Adj uvanted, Preservative Free 01/30/2023,01/13/2022,01/18/2021,2019 Influenza, Seasonal, Injectable 01/17/2011,01/18 Influenza, Unspecified 02/11/2015,2013,01/16/2013,2011 PCV13 03/02/2014 PPSV23 01/23/2018,09/01/2014,02/21/2003 RZV (SHINGRIX) 08/20/2023(Deferred: Patient decision),01/30/2023,08/23/2022(Deferre d: Other - Medicare patient will do at the pharmacy) SARS-COV-2 (COVID-19) - MODERNA(Discontinued) 08/20/2023(Deferred: Patient decision),08/01/2021,01/31/2021, 021,04/29/2020 SARS-COV-2 (COVID-19) - PFIZ ER BIVALENT TS(Discontinued)(12 YEARS OR OLDER) 02/14/2022 Td (Adult), adsorbed 12/22/2004,07/31/1994 Td, (Adult) Unspecified 01/07/2005 Tdap 08/23/2022, 3(Deferred: Other - Medicare patient and will do at pharmacy),01/12/2012 influenza high dose (65 year s or older) (PF) 01/28/2019,01/23/2018,03/12/2017,2015,02/04/2015 Family History Medical History Relation Name Comments AA - Aortic aneurysm Brother 1 Harry Bone cancer Brother 1 Mcdonald Coronary artery disease Brother 2 Subhash Diabetes Brother 2 Subhash Pancreatic cancer Brother 2 2020 Prostate cancer Brother 2 Subhash Stroke Brother 2 Subhash Coronary artery disease Father Diabetes Father Osteoarthritis Father Diabetes Mother Pacemaker pulse generator Mother Stroke Mother No Known Problems Sister Nasrin Relation Name Status Comments Brother 1 Harry (Age 45) of gregorio ne cancer Brother 2 Subhash Alive Father (Age 78) Mother (Age 92) passed marc y of complications of stroke Sister Nasrin Alive intestinal issu es Social History Tobacco Use Types Packs/Day Years Used Date Smoking Tobacco: Never Smokeless Tobacco: Never Tobacco Cessation:Counseling Given: Not Answered Alcohol Use Standard Drinks/Week Comments Yes 6 (1 standard drink = 0.6 oz pur e alcohol) 1-2 drinks per week on average [facility] Utilities Answer Date Recorded In the [...] 08/19/2022 How often do you attend chur or latter-day services? 1 to 4 times per year 08/19/2022 Do you belong to any clubs o r organizations such as restorationist groups, unions, fraternal or athletic groups, or [...] Answer Date Recorded PHQ-2 Score 0 07/16/2023 [facility] - Occupational Stress Questionnaire Answer Date Recorded [...] your living situation today? I have a [facility] place to live 07/20/2023 Education Answer Date Recorded What is the highest level of school you have completed or the highest degree you have received? Some college, no degree 01/27/2021 Sex and Gender Information Value Date Recorded Sex Assigned at Female 08/05/2021 8:00 AM CDT Gender Identity Female 08/05/2021 8:00 AM CDT Sexual Orientation Straight 08/05/2021 8: 00 AM CDT Last Filed Vital Signs Vital Sign Reading Time Taken Comments Blood Pressure 135/64 08/27/2023 1:40 PM CDT Pulse 64 08/27/2023 1:40 PM CDT Temperature 36.1 ??C (97 ??F) 08/20/2023 3:34 PM CDT Respiratory Rate 20 08/20/2023 3:34 PM CDT Oxygen Saturation 96% 08/20/2023 3:34 PM CDT room air Inhaled Oxygen Concentration - - Weight 76.3 kg (168 lb 3.4 oz) 08/27/2023 1:40 P M CDT Height 157.4 cm (5' 1.97) 08/27/2023 1:40 PM CD T Body Mass Index 30.8 08/27/2023 1:40 PM CDT Plan of Treatment Upcoming Encounters Date Type Department Care Team (Late st Contact Info) Description 10/08/2023 10:40 AM CDT Office Visit Department of Community Internal Medicine in [place], [place] [address] [place] [phone] Brea Augustin P.A.-C. [address] [place] [phone] Health Maintenance Due Date Last Done Comments CT Colonography 1950 Cologuard 1950 Hepatitis A Vaccines (2 of 2 - Risk 2-dose series) 05/30/2007 11/27/2006, 05/22/2006 Colonoscopy 03/11/2023 03/11/2018, 06/2017, 01/30/2013 Colorectal Cancer Surveillance 03/11/2023 Zoster Vaccines (3 of 3) 03/27/2023 01/30/2023, 01/07 COVID-19 Vaccine ( season) 2023 02/07/2023, 02/14/2022, 08/01/2021, Additional history exists Diabetes Education 08/24/2023 08/23/2022, 0 08/01/2021, 07/22/2020, Additional history exists Diabetic Office Visit with Foot Exam 08/24/2023 08/23/2022, 08/01/2021, 07/22/2020, Additional history exists Mammogram 11/10/2023 11/09/2022, 05/2022, 10/25/2021, Additional history exists Hemoglobin A1C 02/14/2024 08/14/2023, 09/2022, 12/04/2022, Additional history exists Dilated Eye Exam 02/27/2024 02/26/2023 (Per formed elsewhere), 02/20/2022 (Performed elsewhere), 02/14/2021 (Performed elsewhere), Additional history exists Creatinine Level (Kidney Function Test) 08/13/2024 08/14/2023, 02/12/2023, 08/10/2022, Additional history exists Potassium Level 08/13/2024 08/14/2023, 09/2022, 08/10/2022, Additional history exists Sodium Level 08/13/2024 08/14/2023, 09/2022, 08/10/2022, Additional history exists Urine Albumin 08/13/2024 08/14/2023, 09/2022, 08/10/2022, Additional history exists Visit: Chronic Disease, age 18+ 08/19/2024 08/20/2023, 07/20/2023 Office Visit for Blood Pressure Check / Re-check 08/26/2024 08/27/2023 Visit: Medicare Annual Wellness 08/20/2027 Postponed from 1950 (Patient Refused) Lipid (Cholesterol) Screening 08/13/2028 08/14/2023, 02/12/2023, 02/10/2022, Additional history exists DTaP,Tdap,and Td Vaccines (3 - Td or Tdap) 08/23/2032 08/23/2022, 01/12/2012, 01/07/2005, Additional history exists Hepatitis C Screening Completed 11/22/2000 Hepatitis B Vaccines Completed 05/22/2006, 06/24/2005, 05/15/2005 Pneumococcal vaccine (65+ years) Completed 01/23/2018, 09/01/2014, 03/02/2014, Additional history exists Influenza Vaccine Completed 01/30/2023, , 01/18/2021, Additional history exists Depression Screening (Annual PHQ-2) Completed 07/20/2023, 07/16/2023 Fall Risk Screen (Annual) Completed 07/20/2023 Medical Devices Implanted Type Area Vertical Punch Operator Device Identifier Shelf Expiration Date Model / Serial / Lot [employer] Biopsy Clip 2nd - [id number] Implanted:Qty: 1 on 11/20/2022 at [facility] Imaging Marker [employer] [id number] 01/04/2023 SMARK[employer]VERONICA VA-2S-13 / / [id number] Ndl Appl Localizer [facility] 10cm - [id number] - [id number] Implanted:Qty: 1 on 12/25/2022 at [facility] Imaging Marker Left: Breast [employer] [id number] 03/27/2027 09-0007S / [id number] / [id number] Description:RFID tag #[id number] Procedures Procedure Name Priority Date/Time Associated Diagnosis Comments IRON AND TOT IRON-BINDING CAPACITY, S/P Routine 08/14/2023 8:11 AM CDT Chronic Kidney Disease Stage 1 Glomerular Filtration Rate Greater Than 90 Hypertension And Chronic Kidney Disease Stage 1 Glomerulonephriti s Focal Segment Chronic Diabetes Mellitus Type 2 With Diabetic Nephropathy (HCC) FERRITIN, S Routine 08/14/2023 8:11 AM CDT Chronic Kidney Disease Stage 1 Glomerular Filtration Rate Greater Than 90 Hypertension And Chronic Kidney Disease Stage 1 Glomerulonephriti s Focal Segment Chronic Diabetes Mellitus Type 2 With Diabetic Nephropathy (HCC) HEMOGLOBIN A1C, B Routine 08/14/2023 8:1 1 AM CDT Chronic Kidney Disease Stage 1 Glomerular Filtration Rate Greater Than 90 Hypertension And Chronic Kidney Disease Stage 1 Glomerulonephriti s Focal Segment Chronic Diabetes Mellitus Type 2 With Diabetic Nephropathy (HCC) RENAL FUNCTION PANEL, S Routine 08/14/2023 8:11 AM CDT Chronic Kidney Disease Stage 1 Glomerular Filtration Rate Greater Than 90 Hypertension And Chronic Kidney Disease Stage 1 Glomerulonephriti s Focal Segment Chronic Diabetes Mellitus Type 2 With Diabetic Nephropathy (HCC) PARATHYROID HORMONE (PTH), S Routine 08/14/2023 8:11 AM CDT Chronic Kidney Disease Stage 1 Glomerular Filtration Rate Greater Than 90 Hypertension And Chronic Kidney Disease Stage 1 Glomerulonephriti s Focal Segment Chronic Diabetes Mellitus Type 2 With Diabetic Nephropathy (HCC) LIPID PANEL, S Routine 08/14/2023 8:11 AM CDT Chronic Kidney Disease Stage 1 Glomerular Filtration Rate Greater Than 90 Hypertension And Chronic Kidney Disease Stage 1 Glomerulonephriti s Focal Segment Chronic Diabetes Mellitus Type 2 With Diabetic Nephropathy (HCC) CBC WITH DIFFERENTIAL, B Routine 08/14/2023 8:11 AM CDT Chronic Kidney Disease Stage 1 Glomerular Filtration Rate Greater Than 90 Hypertension And Chronic Kidney Disease Stage 1 Glomerulonephriti s Focal Segment Chronic Diabetes Mellitus Type 2 With Diabetic Nephropathy (HCC) URINALYSIS WITH MICROSCOPIC Routine 08/14/2023 8:08 AM CDT Chronic Kidney Disease Stage 1 Glomerular Filtration Rate Greater Than 90 Hypertension And Chronic Kidney Disease Stage 1 Glomerulonephriti s Focal Segment Chronic Diabetes Mellitus Type 2 With Diabetic Nephropathy (HCC) ALBUMIN, RANDOM, U Routine 08/14/2023 8: 08 AM CDT Chronic Kidney Disease Stage 1 Glomerular Filtration Rate Greater Than 90 Hypertension And Chronic Kidney Disease Stage 1 Glomerulonephriti s Focal Segment Chronic Diabetes Mellitus Type 2 With Diabetic Nephropathy (HCC) BI BREAST DIAGNOSTIC LEFT WITH TOMOSYNTHESIS RAD - Routine (most inpatients and all outpatients) 11/09/2022 1:38 PM CDT Abnormal Mammogram from Last 3 Months or Most Recently Relevant to Health Maintenance Results * Lipid Panel (08/14/2023 8:11 AM CDT) Pathologist [facility] Triglycerides 97 mg/dL 08/14/2023 2:54 PM CDT OWAT Comment: ----REFERENCE VALUE---- Normal: <150 mg/dL Borderline High: 150-199 mg/dL High: 200-499 mg/dL Very High: > or =500 mg/dL Cholesterol, Total 158 mg/dL 2023 2:54 PM CDT OWAT Comment: ----REFERENCE VALUE---- Desirable: < 200 mg/dL Borderline High: 200 - 239 mg/dL High: > or = 240 mg/dL Cholesterol, LDL, Calculated 75 mg/dL 08/14/2023 2:54 PM CDT OWAT Comment: ----REFERENCE VALUE---- Desirable: <100 mg/dL Above Desirable: 100-129 mg/dL Borderline High: 130-159 mg/dL High: 160-189 mg/dL Very High: >=190 mg/dL ----ADDITIONAL INFORMATION---- LDL cholesterol calculated using the Andrews/NIH equation. Cholesterol, HDL 65 >=50 mg/dL 08/14/19 2:54 PM CDT OWAT Cholesterol, Non-HDL, Calculated 93 mg/dL 08/14/2023 2:54 PM CDT OWAT Comment: ----REFERENCE VALUE---- Desirable: <130 mg/dL Above Desirable: 130-159 mg/dL Borderline High: 160-189 mg/dL High: 190-219 mg/dL Very High: > or =220 mg/dL Fasting (8 HR or more) Yes 08/14/2023 1:14 PM CDT OW[facility] Blood (Blood, Venous) 08/14/2023 8:11 AM CDT 08/14/2023 1:14 PM CDT Rubens Rivera Jr., D.O. LAB BLOOD AD D-ON [facility] [address] [place] [address], [facility] OWAT [facility] [place] [address] [place] [address] * (ABNORMAL) Renal Function Panel (08/14/2023 8:11 AM CDT) Potassium, P 4.6 3.6 - 5.2 mmol/L 08/14/2023 2:55 PM CDT OW[facility] Sodium, P 137 135 - 145 mmol/L 08/14/2023 2:55 PM CDT OW[facility] Chloride, P 101 98 - 107 mmol/L 08/14/2023 2:55 PM CDT OW[facility] Bicarbonate, P 25 22 - 29 mmol/L 08/14/2023 2:54 PM CDT OW[facility] Anion Gap, P 11 7 - 15 08/14/2023 2:55 PM CDT [facility] BUN (Blood Urea Nitrogen), P 14 6 - 21 mg/dL 08/14/2023 2:54 PM CDT OWAT Creatinine 0.66 0.59 - 1.04 mg/dL 08/14/2023 2:54 PM CDT OWAT Estimated GFR (eGFR) >90 >=60 mL/min/BSA 08/14/2023 2:54 PM CDT OWAT Comment: Estimated GFR calculated using the 2020 CKD_EPI creatinine equation. Calcium, Total, P 9.8 8.8 - 10.2 mg/dL 08/14/2023 2:54 PM CDT OWAT Glucose, P 161(H) 70 - 140 mg/dL 08/14/2023 2:54 PM CDT OW[facility] Albumin, P 4.8 3.5 - 5.0 g/dL 08/14/2023 2:54 PM CDT OWAT Phosphorus (Inorganic), P 4.3 2.5 - 4.5 mg/dL 08/14/2023 3:29 PM CDT [facility] Blood (Blood, Venous) 08/14/2023 8:11 AM CDT 08/14/2023 1:14 PM CDT Narrative [facility] - 08/14/2023 3:29 PM CDT Specimen Information: Specimen ID: [id number] Specimen Type: Blood Specimen Collection Start Date: 08/14/2023 ??8:11 AM Specimen Received Date: 08/14/2023 ??1:14 PM Specimen ID: [id number] Specimen Type: Blood Specimen Collection Start Date: 08/14/2023 ??8:11 AM Specimen Received Date: 08/14/2023 ??3:11 PM Rubens Rivera Jr., D.O. LAB BLOOD AD D-ON [facility] [address] [place] [address], [facility] OWAT [facility] [place] [address] [place] [address] A[facility] [address] [place] [address] * Iron and Total Iron-Binding Capacity (08/14/2023 8:11 AM CDT) Iron 78 35 - 145 mcg/dL 08/14/2023 3:38 PM CDT [facility] Total Iron Binding Capacity 348 250 - 400 mcg/dL 08/14/2023 3:38 PM CDT [facility] Percent Saturation 22 14 - 50 % 08/14/2023 3:38 PM CDT [facility] Blood (Blood, Venous) 08/14/2023 8:11 AM CDT 08/14/2023 3:12 PM CDT Rubens Rivera Jr., D.O. LAB BLOOD AD D-ON Performing Organization Address City/[facility]/ZIP Co de Phone Number [facility] [address] [place] [address], [facility] AUST [place] [facility] - [address] [address] * CBC with Differential, Blood (08/14/2023 8:11 AM CDT) Hemoglobin 14.6 11.6 - 15.0 g/dL 08/14/2023 8:25 AM CDT FB60 Hematocrit 43.7 35.5 - 44.9 % 08/14/2023 8:25 AM CDT FB60 Erythrocytes 4.91 3.92 - 5.13 x10(12)/L 08/14/2023 8:25 AM CDT FB60 MCV 89.0 78.2 - 97.9 fL 08/14/2023 8:25 AM CDT FB60 RBC Distrib Width 12.7 12.2 - 16.1 % 08/14/2023 8:25 AM CDT FB60 Platelet Count 212 157 - 371 x10(9)/L 08/14/2023 8:25 AM CDT FB60 Leukocytes 5.4 3.4 - 9.6 x10(9)/L 08/14/2023 8:25 AM CDT FB60 Neutrophils 3.50 1.56 - 6.45 x10(9)/L 08/14/2023 8:25 AM CDT FB60 Lymphocytes 1.44 0.95 - 3.07 x10(9)/L 08/14/2023 8:25 AM CDT FB60 Monocytes 0.32 0.26 - 0.81 x10(9)/L 08/14/2023 8:25 AM CDT FB60 Eosinophils 0.09 0.03 - 0.48 x10(9)/L 08/14/2023 8:25 AM CDT FB60 Basophils 0.05 0.01 - 0.08 x10(9)/L 08/14/2023 8:25 AM CDT FB60 Blood (Blood, Venous) 08/14/2023 8:11 AM CDT 08/14/2023 8:11 AM CDT Rubens Rivera Jr. D.O. LAB BLOOD AD D-ON [facility] [address] [place] [address], [facility] FB60 [facility] [place] [address] * Parathyroid Hormone (PTH) (08/14/2023 8:11 AM CDT) Parathyroid Hormone (PTH), S 25 15 - 65 pg/mL 08/14/2023 3:38 PM CDT [facility] Comment: Biotin has been identified by the balloon sander as a potential interfering substance. Higher concentrations of biotin may be found in multivitamins, hair/nail supplements, and workout supplements. If the result does not match clinical observations, repeat testing after patient refrains from the use of supplements for at least 12 hours. Blood (Blood, Venous) 08/14/2023 8:11 AM CDT 08/14/2023 3:13 PM CDT Rubens Rivera Jr., D.O. LAB BLOOD AD D-ON Performing Organization Address City/[facility]/ZIP Co de Phone Number [facility] [address] [place] [address], [place] AUST [facility] [address] [place] [address] * (ABNORMAL) Hemoglobin A1c (08/14/2023 8:11 AM CDT) Hemoglobin A1c, B 7.6(H) 4.2 - 5.6 % 08/14/2023 1:56 PM CDT OWAT Comment: Hemoglobin A1c values greater than or equal to 6.5 percent are diagnostic for diabetes mellitus. ??Diagnosis should be confirmed by repeat testing. ??In diabetic patients, HbA1c goals should be discussed with healthcare provider. Blood (Blood, Venous) 08/14/2023 8:11 AM CDT 08/14/2023 1:14 PM CDT Rubens Rivera Jr., D.O. LAB BLOOD AD D-ON Performing Organization Address [facility] Co de Phone Number [facility] [address] [place] [address], [place] OWAT [facility] [place] [address] [place] [address] * Ferritin (08/14/2023 8:11 AM CDT) Ferritin, S 31 11 - 328 mcg/L 08/14/2023 2:14 PM CDT OW[facility] Comment: Biotin has been identified by the balloon sander as a potential interfering substance. Higher concentrations of biotin may be found in multivitamins, hair/nail supplements, and workout supplements. If the result does not match clinical observations, repeat testing after patient refrains from the use of supplements for at least 12 hours. Blood (Blood, Venous) 08/14/2023 8:11 AM CDT 08/14/2023 1:16 PM CDT Rubens Rivera Jr., D.O. LAB BLOOD AD D-ON Performing Organization Address [facility] Co de Phone Number [facility] [address] [place] [address], [place] OW[place] [facility] [place] [address] [place] [address] * (ABNORMAL) Albumin, Random, Urine (08/14/2023 8:08 AM CDT) Microalbumin 275.0 mg/L 08/14/2023 2:01 PM CDT OW[facility] Creatinine 114 mg/dL 08/14/2023 2:01 PM CDT OW[facility] Albumin/Creatinin e Ratio 241(H) <25 mg/g 08/14/2023 2:01 PM CDT OW[facility] Urine (Urine, Voided) 08/14/2023 8:08 AM CDT 08/14/2023 1:14 PM CDT Rubens Rivera Jr., D.O. LAB URINE OR DERABLES Performing Organization Address [facility] Co de Phone Number [facility] [address] [place] [address], [facility] OWAT [facility] [place] [address] [place] [phone] * (ABNORMAL) Urinalysis, with Microscopic: Urine, Voided [...] 8.0 08/14/2023 8:32 AM CDT FB60 Specific [place] 1.020 1.001 - 1.035 08/14/2023 8:32 AM [...] Rivera Jr., D.O. LAB URINE OR DERABLES [facility] [address] [facility] [place] [address], [facility] [id number] [facility] in [place] [address] [place] [address] * (ABNORMAL) BI Breast Diagnostic Left with Tomosynthesis (11/09/2022 1:38 PM CDT) Anatomical Region Laterality Modality Breast, Breast Imaging RST L OS, Breast Imaging ARZ LOS, Breast Imaging FLA LOS Left Mammography 11/09/2022 2:09 PM CDT Impressions 11/09/2022 2:22 PM CDT Left breast microcalcifications. RECOMMENDATION: ??Biopsy Stereotactic biopsy. ASSESSMENT: ??BI-RADS: 4A: Suspicious. Narrative 11/09/2022 2:22 PM CDT EXAM: ??BI BREAST DIAGNOSTIC LEFT WITH TOMOSYNTHESIS, BI ULTRASOUND BREAST FOCUSED LEFT INDICATION: ??Abnormal screening mammogram COMPARISON: ??Prior exam(s) were available and reviewed for comparison. DENSITY: ??b. There are scattered areas of fibroglandular density. FINDINGS: ??Imaging today included left breast diagnostic mammogram including magnification views and left breast ultrasound. In the lateral left breast 8 cm from nipple, there is 12 mm cluster of microcalcifications. Ultrasound is negative for associated mass. Both mammogram and ultrasound show 3 mm benign-appearing intramammary lymph node located 1.4 cm lateral and anterior to the calcifications. Recommend stereotactic biopsy of the calcifications to distinguish benign from neoplastic etiology. No suspicious left axillary lymph nodes. I discussed with the patient the findings and recommendations for biopsy. She elected for biopsy. The radiology department will contact patient to coordinate biopsy. Procedure Note Johnathon Griffiths M.D. - 11/09/2022 EXAM: BI BREAST DIAGNOSTIC LEFT WITH TOMOSYNTHESIS, BI ULTRASOUND BREASTFOCUSED LEFT INDICATION: Abnormal screening mammogram COMPARISON: Prior exam(s) were available and reviewed for comparison. DENSITY: b. There are scattered areas of fibroglandular density. FINDINGS: Imaging today included left breast diagnostic mammogramincluding magnification views and left breast ultrasound. In the lateral left breast 8 cm from nipple, thereis 12 mm cluster of microcalcifications. Ultrasound is negative for associated mass. Bothmammogram and ultrasound show 3 mm benign-appearing intramammary lymph node located 1.4 cm lateral andanterior to the calcifications. Recommend stereotactic biopsy of the calcifications todistinguish benign from neoplastic etiology. No suspicious left axillary lymph nodes. I discussed with the patient the findings and recommendations for biopsy.She elected for biopsy. The radiology department will contact patient to coordinate biopsy. IMPRESSION: Left breast microcalcifications. RECOMMENDATION: Biopsy Stereotactic biopsy. ASSESSMENT: BI-RADS: 4A: Suspicious. Brea BRIGHT BI SERGIO ES from Last 3 Months or Most Recently Relevant to Health Maintenance Care Teams Cane Cutter Relationship Specialty Start Date End Date Brea Augustin P.A.-C. [address] [place] [address] Ave [place] [phone] PCP - General 04/13/22
--- OUTSIDE RECORDS SUMMARY | 2023-09-11 06:13 | XMS_ITS | Referral Summary ---
Author Organization [facility] Address [address] [place] [address] Care Team Providers Care Cement Gun Operator Name Role Phone Brea Augustin P.A.-C. Primary Care Provider Source Comments Patient records contain information from all sites at [facility]. For routine questions regarding patient records, call [phone] during business hours, M-F 8:00 AM - 5:00 PM Central Time. Record requests for emergency care only can be directed to [phone] at any time.[facility] Encounters Date Type Department Care Team Description 09/10/2023 Refill Department of Community Internal Medicine in [address] [phone] Brea Augustin P.A.-C. Med Refill 08/27/2023 1:30 PM CDT External Outreach Division of Nephrology and Hypertension in [place], [place] [address] [place] [phone] Rubens Rivera Jr., Lucia.O. Hypertension And Chronic Kidney Disease Stage 1 (Primary Dx); Diabetes Mellitus Type 2 With Diabetic Nephropathy (HCC); 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 (HCC); Bronchitis 08/20/2023 3:40 PM CDT Office Visit Department of Community Internal Medicine in [place], [place] [address] [place] [phone] Brea Augustin P.A.-C. DeQuervain's Tenosynovitis (Primary Dx); Rhinitis Allergic; Diabetes Mellitus Type 2 With Diabetic Nephropathy (HCC) 08/14/2023 8:01 AM CDT - 08/14/2023 11:59 PM CDT Hospital Encounter Department of Laboratory Medicine in [address] [phone] Rubens Rivera Jr., D.O. Chronic Kidney Disease Stage 1 Glomerular Filtration Rate Greater Than 90; Hypertension And Chronic Kidney Disease Stage 1; Glomerulonephritis Focal Segment Chronic; Diabetes Mellitus Type 2 With Diabetic Nephropathy (HCC) Discharge Disposition: Home or Self Care 08/14/2023 8:01 AM CDT - 08/14/2023 11:59 PM CDT Hospital Encounter Department of Laboratory Medicine in [address] [phone] Rubens Rivera Jr. D.O. Chronic Kidney Disease Stage 1 Glomerular Filtration Rate Greater Than 90; Hypertension And Chronic Kidney Disease Stage 1; Glomerulonephritis Focal Segment Chronic; Diabetes Mellitus Type 2 With Diabetic Nephropathy (HCC) Discharge Disposition: Home or Self Care 07/20/2023 1:00 PM CDT Office Visit Department of Community Internal Medicine in [address] [phone] Brea Augustin P.A.-C. DeQuervain's Tenosynovitis (Primary Dx); Screening Cancer Colon; Hypertension And Chronic Kidney Disease Stage 1 from Last 3 Months Allergies Active Allergy Reactions Criticality Noted Date Comments Adhesive Rash 03/13/2014 Adhesive Tape-Silicones Other (see comments) Amoxicillin Rash 07/01/2009 Bleach (Sodium Hypochlorite) Other (see comments) 06/26/2018 Cefadroxil Rash 07/01/2009 Latex Rash 08/24/2005 Penicillins Hives (Reselect Reaction) 02/25/2004 Sodium Hypochlorite Solution Other (see comments) 06/26/2018 Tree And Shrub Pollen Other (see comments) 06/08 [place] trees Medications Medication Sig Dispensed Refills Start [...] by mouth as needed. 03/02/2014 Active omega 5-kcf-syj-fish oil 100-160-1,000 mg capsule Take by mouth [...] from 12/25/2022:Stage IA(pT1c, pN0(sn), cM0, G2, ER+, OK-, HER2-) - Unsigned Asymptomatic Varicose Veins Of [...] W ith Congestive Heart Failure 02/24/2004 10/07/2019 Immunizations Name Administration Dates Next Due H1N1 [...] (65 year s or older) (PF) 01/28/2019,01/23/2018,03/12/2017,2015,02/04/2015 Social History Tobacco Use Types Packs/Day Years Used Date Smoking Tobacco: Never Smokeless Tobacco: Never Tobacco Cessation:Counseling Given: Not Answered Alcohol Use Standard Drinks/Week Comments Yes 6 (1 standard drink = 0.6 oz pur e alcohol) 1-2 drinks per week on average [facility] Utilities Answer Date Recorded In the past 12 months has e [employer], gas, oil, or water [employer] threatened to shut off services in your [...] week 08/19/2022 How often do you attend [facility] or hinduism services? 1 to 4 times per year 08/19/2022 Do you belong to any clubs o r organizations such as roman catholic groups, unions, fraternal or athletic groups, or [...] Answer Date Recorded PHQ-2 Score 0 07/16/2023 [facility] [place] of Occupat ional Health - Occupational Stress [...] your living situation today? I have a [facility] place to live 07/20/2023 Education Answer [...] Visit Department of Community Internal Medicine in [place], [place] [address] [place] [phone] Brea Augustin P.A.-C. [address] [place] [phone] Medical Devices Implanted Type Area Carbon Brusher Assembler Device Identifier Shelf Expiration Date Model / Serial / Lot [employer] Biopsy Clip 2nd - [id number] Implanted:Qty: 1 on 11/20/[address] [facility] Imaging Marker [employer] [id number] 01/04/2023 RLiliana-VERONICA VA-2S-[id number] / / [id number] Ndl Appl Localizer [facility] 10cm - [id number] - [id number] Implanted:Qty: 1 on 12/25/[address] [facility] Imaging Marker Left: Breast [employer] [id number] 03/27/20277S / [id number] / [id number] Description:RFID tag #[id number] Procedures Procedure Name Priority Date/Time Associated Diagnosis [...] * Lipid Panel (08/14/2023 8:11 AM CDT) Triglycerides 97 mg/dL 08/14/2023 2:54 PM CDT [...] Rivera Jr., D.O. LAB BLOOD AD D-ON [facility] [address] [place] [address], [facility] [place] [facility] [place] [address] [place] [address] * (ABNORMAL) Renal Function Panel (08/14/2023 8:11 [...] AM CDT 08/14/2023 1:14 PM CDT Narrative [facility] - 08/14/2023 3:29 PM CDT Specimen Information: Specimen ID: [id number] Specimen Type: Blood Specimen Collection Start Date: 08/14/2023 ??8:11 AM Specimen Received Date: 08/14/2023 ??1:14 PM Specimen ID: [id number] Specimen Type: Blood Specimen Collection Start Date: 08/14/2023 ??8:11 AM Specimen Received Date: 08/14/2023 ??3:11 PM Rubens Rivera Jr., D.O. LAB BLOOD AD D-ON Performing Organization Address City/[facility]/ZIP Co de Phone Number [facility] [address] [place] [address], [facility] in [place] [address] [place] [address] AUST [facility] [address] [place] [address] * Iron and Total Iron-Binding Capacity (08/14/2023 [...] Rivera Jr., D.O. LAB BLOOD AD D-ON [facility] [address] [place] [address], [facility] AUST [facility] [address] [place] [address] * CBC with Differential, Blood (08/14/2023 8:11 [...] 08/14/2023 8:11 AM CDT Rubens Rivera Jr. DNiyaO. LAB BLOOD AD D-ON [facility] [address] [place] [address], [facility] FB60 [facility] in [place] [address] [place] [address] * Parathyroid Hormone (PTH) (08/14/2023 8:11 AM CDT) Parathyroid Hormone (PTH), S 25 15 - 65 pg/mL 08/14/2023 3:38 PM CDT AUST Comment: Biotin has been identified by the commercial field inspector as a potential interfering substance. Higher concentrations [...] LAB BLOOD AD D-ON Performing Organization Address City/[facility]/ZIP Co de Phone Number [facility] [address] [place] [address], [facility] [address] [place] [address] * (ABNORMAL) Hemoglobin A1c (08/14/2023 8:11 AM [...] Rivera Jr., D.O. LAB BLOOD AD D-ON [facility] [address] [place] [address], [place] OWAT [facility] [place] [address] [place] [address] * Ferritin (08/14/2023 8:11 AM CDT) Ferritin, S 31 11 - 328 mcg/L 08/14/2023 2:14 PM CDT OW[facility] Comment: Biotin has been identified by the commercial field inspector as a potential interfering substance. Higher concentrations [...] LAB BLOOD AD D-ON Performing Organization Address [facility] de Phone Number [facility] [address] [address], [facility] [place] [facility] [place] [address] [place] [address] * (ABNORMAL) Albumin, Random, Urine (08/14/2023 8:08 AM CDT) Microalbumin 275.0 mg/L 08/14/2023 2:01 PM CDT [facility] Creatinine 114 mg/dL 08/14/2023 2:01 PM CDT [facility] Albumin/Creatinin e Ratio 241(H) <25 mg/g 08/14/2023 2:01 PM CDT [facility] Urine (Urine, Voided) 08/14/2023 8:08 AM CDT 08/14/2023 1:14 PM CDT Rubens Rivera Jr., D.O. LAB URINE OR DERABLES Performing Organization Address [facility] Co de Phone Number [facility] [address] [place] [address], [facility] OWAT [facility] [place] [address] [place] [address] * (ABNORMAL) Urinalysis, with Microscopic: Urine, Voided [...] 8.0 08/14/2023 8:32 AM CDT FB60 Specific [place] 1.020 1.001 - 1.035 08/14/2023 8:32 AM [...] 8:08 AM CDT 08/14/2023 8:30 AM CDT Carmen Shaver Jr.O. LAB URINE OR DERABLES [facility] [address] [place] [address], [facility] FB60 [facility] in [place] [address] [place] [address] * (ABNORMAL) BI Breast Diagnostic Left with [...] Stereotactic biopsy. ASSESSMENT: BI-RADS: 4A: Suspicious. Brea Augustin P.A.-C. IMG BI PROCEDUR ES from Last 3 Months or Most Recently Relevant to Health Maintenance Care Teams Cement Gun Operator Relationship Specialty Start Date End Date Brea Augustin P.A.-C. [address] [facility] [address] [place] [phone] PCP - General 04/13/22
--- OUTSIDE RECORDS SUMMARY | 2023-09-11 06:13 | XMS_ITS | Encounter Summary ---
Author Organization [facility] Address [address] [place] [address] Care Team Providers Care Sole Layer Name Role Phone Brea Augustin P.A.-C. Primary Care Provider Reason for Visit * Reason Comments Med Refill Encounter Details Date Type Department Care Team (Late st Contact Info) Description 09/10/2023 Refill Department of Community Internal Medicine in [place], [place] [address] [facility] [place] [phone] Brea Augustin P.A.-C. [address] [place] [phone] Med Refill Social History Tobacco Use Types Packs/Day Years Used Date Smoking Tobacco: Never Smokeless Tobacco: Never Alcohol Use Standard Drinks/Week Comments Yes 6 (1 standard drink = 0.6 oz pur e alcohol) 1-2 drinks per week on average [facility] Utilities Answer Date Recorded In the past 12 months has [employer], [employer], oil, or water [employer] threatened to shut off services in your [...] often do you attend chur ch or restorationism services? 1 to 4 times per year 08/19/2022 Do you belong to any clubs o r organizations such as taoism groups, unions, fraternal or athletic groups, or [...] Answer Date Recorded PHQ-2 Score 0 07/16/2023 [facility] [place] of Occupat ional Health - Occupational Stress [...] your living situation today? I have a [facility] place to live 07/20/2023 Education Answer [...] AM CDT documented as of this encounter Plan of Treatment Upcoming Encounters Date Type Department Care Team (Late st Contact Info) Description 10/08/2023 10:40 AM CDT Office Visit Department of Community Internal Medicine in [place], [place] [address] [facility] [place] [place] [address] Brea Augustin P.A.-C. [address] [place] [phone] documented as of this encounter Visit Diagnoses Diagnosis Hypertension Essential Primary documented in this encounter Additional Health Concerns Assessment Noted Time PHQ-9 Depression Total Score: 1 06/27/19 19 8:44 AM CDT documented as of this encounter Care Teams Sole Layer Relationship Specialty Start Date End Date Brea Augustin P.A.-C. [address] [place] [phone] PCP - General 04/13/22 documented as of this encounter
--- OUTSIDE RECORDS SUMMARY | 2023-09-11 06:13 | XMS_ITS | Encounter Summary ---
Author Organization [facility] Address [address] [place] [address] Care Team Providers Care Mess Cook Name Role Phone Brea Augustin P.A.-C. Primary Care Provider Reason for Referral * Outpatient (Routine) - Authorized Specialty Diagnoses / Procedures Referred By Karen lee Referred To Contact Diagnoses DeQuervain's Tenosynovitis Brea Augustin P.A.-C. [address] [facility] [place] [address] Referral ID Status Reason Start Date Expiration Date V isits Requested Visits Authorized [id number] Authorized 08/20/2023 02/18/2025 1 1 Reason for Visit * Reason Comments Follow-up 1 month follow up an nerissa AWV with RN; cold crud last week Sunday or * Outpatient (Routine) - Closed Specialty Diagnoses / Procedures Referred By Karen lee Referred To Contact [facility] Brea Augustin P.A.-C. [address] [place] [address] [facility] Region Referral ID Status Reason Start Date Expiration Date Visits Re quested Visits Authorized [id number] Closed 07/20/2023 01/18/2025 1 1 Encounter Details Date Type Department Care Team (Latest Contact Info) Description 08/20/2023 3:40 PM CDT Office Visit Department of [facility] in [place], [place] [address] [facility] [place] [phone] Brea Augustin P.A.-C. [address] [facility] [place] [phone] DeQuervain's Tenosynovitis (Primary Dx); Rhinitis Allergic; Diabetes Mellitus Type 2 With Diabetic Nephropathy (HCC) Social History Tobacco Use Types Packs/Day Years Used Date Smoking Tobacco: Never Smokeless Tobacco: Never Tobacco Cessation:Counseling Given: Not Answered Alcohol Use Standard Drinks/Week Comments Yes 6 (1 standard drink = 0.6 oz pur e alcohol) 1-2 drinks per week on average [facility] Utilities Answer Date Recorded In the past 12 months has e [employer], gas, oil, or water [employer] threatened to shut off services in your [...] How often do you attend chur or amish services? 1 to 4 times per year 08/19/2022 Do you belong to any clubs o r organizations such as baptist groups, unions, fraternal or athletic groups, or [...] Answer Date Recorded PHQ-2 Score 0 07/16/2023 [facility] - Occupational Stress Questionnaire Answer Date Recorded [...] your living situation today? I have a [facility] place to live 07/20/2023 Education Answer Date [...] Sign Reading Time Taken Comments Blood Pressure 139/73 08/20/2023 3:34 PM CDT Pulse 58 08/20/2023 3:34 PM CDT Temperature 36.1 ??C (97 ??F) 08/20/2023 3:34 PM CDT Respiratory Rate 20 08/20/2023 3:34 PM CDT Oxygen Saturation 96% 08/20/2023 3:34 PM CDT room air Inhaled Oxygen Concentration - - Weight 77.2 kg (170 lb 1.4 oz) 08/20/2023 3:34 P M CDT Height 157.4 cm (5' 1.97) 08/20/2023 3:34 PM CD T Body Mass Index 31.14 08/20/2023 3:34 PM CDT documented in this encounter Progress Notes * Brea Augustin PAustin.LadiC. - 08/20/2023 3:40 PM CDT SUBJECTIVE CHIEF COMPLAINT/REASON FOR VISIT Chief Complaint Patient presents with Follow-up 1 month follow up and AWV with RN; emilio espinoza last week Sunday or HISTORY OF PRESENT ILLNESS Tamara Clarke is a pleasant 73 y.o. female who presents to the clinic today for 1 month follow up. We treated her for DeQuervain's tenosynovitis (left) at our previous clinic visit with conservative management. She has been wearing thumb spica splint consistently without much improvement in symptoms. She is left hand dominant and has difficulty with writing due to this condition. She would like an Orthopedic referral to [place] where she is seen for her knees. She would also like to discuss chest congestion, productive cough, and nasal congestion that started 5 days ago. Unsure if she has post-nasal drip. She says she gets this a few times per year and is usually prescribed an antib iotic. She was last treated for similar symptoms when in [place] about 3 -4 months ago. She states a nasal spray was prescribed but she did not like this. She has seasonal allergies. She is currentlytaking Mucinex every 12 hours which she has been doing for the past 3 days. She is also taking Claritin daily. She denies fevers or chills. She denies shortness of breath or chest pain. She does not use nasal saline rinses. She denies ear pain or pressure. The following portions of the patient's history were reviewed and updated as appropriate: current medications and problem list. Pertinent positive ROS are listed above in HPI. Patient Active Problem List Diagnosis Diabetes Mellitus Type 2 With Diabetic Nephropathy (HCC) Hyperlipidemia Glomerulonephritis Focal Segment Chronic Keratosis Actinic Hypertension And Chronic Kidney Disease Stage 1 Microalbuminuria Obesity Body Mass Index 30-39.9 Adult Asymptomatic Varicose Veins Of Left Lower Extremity Dermatitis Atopic 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 (HCC) ALLERGIES/CONTRAINDICATIONS Allergies Allergen Reactions Adhesive Rash Adhesive Tape-Silicones Other (see comments) Amoxicillin Rash Bleach (Sodium Hypochlorite) Other (see comments) Cefadroxil Rash Latex Rash Penicillins Hives (Reselect Reaction) Sodium Hypochlorite Solution Other (see comments) Tree And Shrub Pollen Other (see comments) [place] trees CURRENT MEDICATIONS Current Outpatient Medications: alcohol swabs pads, medicated, [...] as needed for cough., Disp: , Rfl: lancets, 1 each daily., Disp: 30 each, [...] meals., Disp: 180 tablet, Rfl: 3 omega 9-nas-xtb-fish oil 100-160-1,000 mg capsule, Take by mouth daily. , Disp: , Rfl: simvastatin (ZOCOR) 20 mg tablet, take 1 tablet at bedtime, Disp: 90 tablet, Rfl: 3 UNABLE TO FIND, Take 1 each by mouth daily. Med Name: Arthrozene, Disp: , Rfl: VITAMIN B COMPLEX ORAL, Take 2 capsules by mouth daily., Disp: , Rfl: ipratropium (ATROVENT) 21 mcg (0.03 %) nasal spray, Administer 2 sprays into each nostril 2 (two) times a day., Disp: 30 mL, Rfl: 12 OBJECTIVE VITAL SIGNS Vitals: 08/20/23 1534 BP: 139/73 Pulse: (!) 58 Resp: 20 Temp: 36.1 ??C SpO2: 96% PHYSICAL EXAMINATION General: Well-nourished, well-developed 73 y.o. in no apparent distress. Awake, alert, age appropriate. HEENT: Head is normocephalic, atraumatic. Pupils round and reactive bilaterally. EOM's intact. Conjunctivae and sclerae are clear. TM's are normal bilaterally. Nares patent with normal mucosa. Oropharynx pink and moist without exudate or erythema. Neck: Neck is supple without lymphadenopathy. Thyroid is normal size and shape. Trachea is midline. Cardiovascular: Regular rate and rhythm without murmurs. Lungs: Clear to auscultation bilaterally with no adventitious sounds. No evidence of consolidation. Abdomen: Bowel sounds present in all quadrants. Soft, non-tender with no palpable organomegaly. Skin: Warm, pink, and dry. No rashes or lesions. Extremities: No peripheral edema. Musculoskeletal: Positive Giles test. Tenderness to palpation over radial styloid. Neurologic: Alert and oriented x3. ASSESSMENT / PLAN IMPRESSION/REPORT/PLAN: #1 DeQuervain's Tenosynovitis This has not responded to 1 month of conservative management. Recommend orthopedic referral for corticosteroid injection. She would like an external referral to Orthopedics in [place]. Referral handed to patient. - External referral ancillary (non-[place]) #2 Rhinitis Allergic Discussed with patient that I believe her symptoms are allergy related and she does not need an antibiotic for this. I have recommended she continue with Mucinex and daily antihistamine. I would liketo add nasal spray to her regimen. She reportedly did not find Flonase effective so we will try ipratropium nasal spray. Encouraged daily nasal saline rinses. If symptoms do not improve, we could consider adding Singulair to her regimen. #3 Diabetes Mellitus Type 2 With Diabetic Nephropathy (HCC) She had a hemoglobin A1c drawn by Nephrology last week and has follow up scheduled to review results. She continues to be a goal of hemoglobin A1C less than 8%. Other orders - [facility] office visit (clinic) - ipratropium (ATROVENT) 21 mcg (0.03 %) nasal spray; Administer 2 sprays into each nostril 2 (two)times a day., Starting 08/20/2023, Normal If symptoms worsen or do not improve, patient is instructed to seek further medical attention. All questions have been answered. Patient demonstrated understanding and verbalized agreement with the plan. Brae Augustin P.A.-C. documented in this encounter Plan of Treatment Upcoming Encounters Date Type Department Care Team (Late st Contact Info) Description 10/08/2023 10:40 AM CDT Office Visit Department of [facility] in [place], [place] [address] [facility] [place] [phone] Brea Augustin P.A.-C. [address] [facility] [place] [phone] documented as of this encounter Visit Diagnoses Diagnosis DeQuervain's Tenosynovitis- Primary Rhinitis Allergic Diabetes Mellitus Type 2 With Diabetic Nephropathy (HCC) documented in this encounter Additional Health Concerns Assessment Noted Time PHQ-9 Depression Total Score: 1 06/27/19 19 8:44 AM CDT documented as of this encounter Care Teams Mess Cook Relationship Specialty Start Date End Date Brea Augustin P.A.-C. [address] [facility] [phone] PCP - General 04/13/22 documented as of this encounter
--- OUTSIDE RECORDS SUMMARY | 2023-09-11 06:14 | XMS_ITS | Encounter Summary ---
Author Organization [facility] Address [address] [place] [address] Care Team Providers Care Manager Home Healthcare Name Role Phone Brea Augustin P.A.-C. Primary Care Provider Reason for Referral * Outpatient (Routine) - Closed Specialty Diagnoses / Procedures Referred By Karen lee Referred To Contact [facility] Brea Augustin P.A.-C. [address] [place] [address] [facility] Region Referral ID Status Reason Start Date Expiration Date Visits Re quested Visits Authorized [id number] Closed 07/20/2023 01/18/2025 1 1 Reason for Visit * Reason Comments Wrist Pain Left wrist x 1 month Other Referral for colonos copy * Outpatient (Routine) - Closed Specialty Diagnoses / Procedures Referred By Karen lee Referred To Contact [facility] Brea Augustin P.A.-C. [address] [place] [address] [facility] Region Referral ID Status Reason Start Date Expiration Date Visits Re quested Visits Authorized [id number] Closed 02/13/2023 02/12/2026 1 1 Encounter Details Date Type Department Care Team (Latest Contact Info) Description 07/20/2023 1:00 PM CDT Office Visit Department of [facility] in [place], [place] [address] [place] [phone] Brea Augustin P.A.-C. [address] [facility] [place] [phone] DeQuervain's Tenosynovitis (Primary Dx); Screening Cancer Colon; Hypertension And Chronic Kidney Disease Stage 1 Social History Tobacco Use Types Packs/Day Years Used Date Smoking Tobacco: Never Smokeless Tobacco: Never Alcohol Use Standard Drinks/Week Comments Yes 6 (1 standard drink = 0.6 oz pur e alcohol) 1-2 drinks per week on average [facility] Utilities Answer Date Recorded In the past 12 months has e [employer], gas, oil, or water [employer] threatened to shut off services in your [...] often do you attend chur ch or scientologist services? 1 to 4 times per year 08/19/2022 Do you belong to any clubs o r organizations such as yarsanism groups, unions, fraternal or athletic groups, or [...] Answer Date Recorded PHQ-2 Score 0 07/16/2023 [facility] - Occupational Stress Questionnaire Answer [...] your living situation today? I have a [facility] place to live 07/20/2023 Education Answer [...] Sign Reading Time Taken Comments Blood Pressure 106/67 07/20/2023 12:47 PM CDT Pulse 70 07/20/2023 12:47 PM CDT Temperature 36.1 ??C (97 ??F) 07/20/2023 12:47 PM CDT Respiratory Rate 16 07/20/2023 12:47 PM CDT Oxygen Saturation - - Inhaled Oxygen Concentration - - Weight 77.7 kg (171 lb 4.8 oz) 07/20/2023 12:47 PM CDT Height - - Body Mass Index 31.36 02/13/2023 11:11 AM RETANNER documented in this encounter Patient Instructions * Patient Instructions* Brea Augustin P.A.-C. - 07/20/2023 1:00 PM CDT Images from the original note were not included. Thumb Spica Splint. Patient Education De Quervain's Tenosynovitis De Quervain???s tenosynovitis is a painful condition affecting two main tendons on the thumb side of your wrist. See Figure 1. If you have this condition, it may hurt when you turn your wrist, grasp objects or open your thumb to do activities like turning a doorknob. It is more likely to happen in women than in in men. Causes When you security risk analyst, grasp, clench, pinch or open your thumb away from your hand, you use two main tendons at the base of your thumb that cross your wrist. These tendons normally glide easily through a tendon sheath. If you repeat the same motion day after day such as grasping a tool, opening jar lids orusing a keyboard, it may irritate the sheath around the two tendons, causing thickening that restricts the movement of the tendons. A direct injury to your wrist or tendon can also be a cause of de Quervain???s tenosynovitis. Symptoms Symptoms can include: Pain and swelling near the base of your thumb. Difficulty moving your thumb and wrist when you are doing activities that involve grasping or pinching. A ???sticking?? or ???stop-and-go?? sensation in your thumb when you try to move it. Exercises Wrist flexion/extension (Figure 2a) Sit comfortably and place your arm on a table. Hold your hand out straight with the thumb side of your wrist upward. Bending only at your wrist, move your hand toward you as far as possible. Keep your fingers relaxed, allowing them to straighten. Hold the position for seconds. Slowly return to the starting position and relax. Bending only at your wrist, move your hand away from you as far as possible. Keep your fingers relaxed, allowing them to curl. Hold the position for seconds. Slowly return to the starting position and relax. Do repetitions. Do this exercise times a day. Wrist ulnar deviation (Figure 2b) Sit comfortably and place your forearm and palm down on a table. Bending only at your wrist, move your hand toward your small finger until you feel a stretch. Hold the position for seconds. Slowly return to the starting position and relax. Do repetitions. Do this exercise times a day. Thumb circles (Figure 3a) Move your thumb in a circular direction. Then make circles going in the other direction. Try increasing the size of the circles. Do repetitions. Do this exercise times a day. Do this exercise without pain. Thumb opposition (Figure 3b) Straighten your thumb and fingers. Bring the tip of your thumb toward the base of your small finger. Straighten your thumb and fingers. Do repetitions. Do this exercise times a day. First dorsal compartment stretch (Figure 4) Place your wrist in the neutral position. Bend your wrist slightly towards your small finger. Do this slowly. Hold for seconds. Slowly bring your wrist back to neutral. Do repetitions. Do this exercise times a day. Home care Try these methods: Rest -- Do not perform activities that make your symptoms worse. Activity modifications -- Changing how you do daily activities can help with your symptoms. See Figure 5 and Figure 6 Bracing -- Use a wrist splint that includes your thumb. Taping -- Ask a physical or occupational therapist to show you how to tape your thumb and wrist. See Figure 7. Ice -- Apply ice in one or both of these ways: Use an ice pack. Place a towel between your skin and the ice pack. Leave the ice pack on the painful area for minutes. Check your skin every five minutes to make sure your skin is red. Stop if your skin turns white. Use ice massage. Fill a sturdy paper or foam cup with water and freeze it. Tear the cup to reveal the ice. Holding onto the remainder of the cup, massage the ice directly to the affected area of the wrist. Do this for 2 to 3 minutes. Stop if your skin turns white. Cross fiber massage -- Ask a physical or occupational therapist to show you how to perform a cross fiber massage which may help increase blood flow, reduce sensitivity and relieve pain. Other treatments Talk with your referring physician or your health care provider about other nonsurgical treatment options if exercises and activity modification are not lessening pain. Nonsurgical treatment may include getting an injection to help with the pain or wearing a splint which gives support to the thumb and wrist. The splint can be worn time buyer at first with reduction of use as your pain lessens. If de Quervain???s tenosynovitis is left untreated, it may become more difficult to use your hand and wrist in your daily activities. If you have questions about these exercises or your medical condition, talk with a member of your health care team. This material is for your education and information only. This content does not replace medical advice, diagnosis or treatment. New medical research may change this information. If you have questionsabout a medical condition, always talk with your health care provider. ?? 2014 [facility] [employer] ([employer]). All rights reserved. [id number] documented in this encounter Progress Notes * Brea Augustin P.A.-C. - 07/20/2023 1:00 PM CDT SUBJECTIVE CHIEF COMPLAINT/REASON FOR VISIT Chief Complaint Patient presents with Wrist Pain Left wrist x 1 month Other Referral for colonoscopy HISTORY OF PRESENT ILLNESS Tamara Clarke is a pleasant 73 y.o. female who presents to the clinic today to discuss wrist pain. She has had left radial wrist pain ongoing for 1 month. She is left-hand dominant. She noticesthis pain with writing and lifting objects. She denies trauma or recent injury to left wrist. She recently returned from wintering in [place]. She has never had similar symptoms in left wrist before.She is using NSAID medications as needed. She is also due for colonoscopy and would like to get this scheduled. The following portions of the patient's history were reviewed and updated as appropriate: current medications and problem list. Patient Active Problem List Diagnosis Diabetes Mellitus [...] Tree And Shrub Pollen Other (see comments) [place] trees CURRENT MEDICATIONS Current Outpatient Medications: alcohol [...] meals., Disp: 180 tablet, Rfl: 3 omega 4-gow-xej-fish oil 100-160-1,000 mg capsule, Take by mouth daily. , Disp: , Rfl: simvastatin (ZOCOR) 20 mg tablet, take 1 tablet at bedtime, Disp: 90 tablet, Rfl: 3 UNABLE TO FIND, Take 1 each by mouth daily. Med Name: Arthrozene, Disp: , Rfl: VITAMIN B COMPLEX ORAL, Take 2 capsules by mouth daily., Disp: , Rfl: OBJECTIVE VITAL SIGNS Vitals: 07/20/23 1247 BP: 106/67 Pulse: 70 Resp: 16 Temp: 36.1 ??C PHYSICAL EXAMINATION General: Well-nourished, well-developed 73 y.o. in no apparent distress. Awake, alert, age appropriate. HEENT: Head is normocephalic, atraumatic. Conjunctivae and sclerae are clear. Oropharynx pink and moist without exudate or erythema. Skin: Warm, pink, and dry. . Musculoskeletal: Positive Giles Test. Neurologic: Alert and oriented x3. ASSESSMENT / PLAN IMPRESSION/REPORT/PLAN: #1 DeQuervain's Tenosynovitis Exam suggestive of DeQuervain's Tenosynovitis. I instructed her to fruit or nut picker a thumb spica splint andwear this for 1 month during the day. I encouraged avoiding activities that exacerbate symptoms. She can use ice and Tylenol as needed. We can consider Orthopedics referral if necessary to discuss further interventions. Need to remind patient that she should be avoiding NSAIDs given her history of focal segment glomerulonephritis and I will plan to send her a portal message regarding this. #2 Hypertension And Chronic Kidney Disease Stage 1 She will continue to follow with Dr. Rivera in Nephrology. #3 Screening Cancer Colon Colonoscopy has been ordered to be completed in [place]. Other orders - [facility] office visit (clinic) - [facility] office visit (clinic); Future; Expected date: 08/19/2023 If symptoms worsen or do not improve, patient is instructed to seek further medical attention. All questions have been answered. Patient demonstrated understanding and verbalized agreement with the plan. FOLLOW UP: 1 month. Brea Augustin P.A.-C. documented in this encounter Plan of Treatment Upcoming Encounters Date Type Department Care Team (Late st Contact Info) Description 10/08/2023 10:40 AM CDT Office Visit Department of [facility] in [place], [place] [address] [place] [phone] Brea Augustin P.A.-C. [address] [place] [phone] Scheduled Referrals Name Type Priority Associated Diagnoses Orde r Schedule [facility] office visit (clinic) Outpatient Referral Routine Expected: 08/19/2023 (Approximate), Expires: 10/18/2024 documented as of this encounter Visit Diagnoses Diagnosis DeQuervain's Tenosynovitis- Primary Screening Cancer Colon Hypertension And Chronic Kidney Disease Stage 1 documented in this encounter Additional Health Concerns Assessment Noted Time PHQ-9 Depression Total Score: 1 06/27/19 19 8:44 AM CDT documented as of this encounter Care Teams Manager Home Healthcare Relationship Specialty Start Date End Date Brea Augustin P.A.-C. [address] [place] [phone] PCP - General 04/13/22 documented as of this encounter
--- OUTSIDE RECORDS SUMMARY | 2023-09-11 06:14 | XMS_ITS | Encounter Summary ---
Author Organization [facility] Address [address] [place] [address] Care Team Providers Care [employer] Name Role Phone Brea Augutsin P.A.-C. Primary Care Provider Encounter Details Date Type Department Care Team (Latest Contact Info) Description 08/14/2023 8:01 AM CDT - 08/14/2023 11:59 PM CDT Hospital Encounter Department of Laboratory Medicine in [place], [place] [address] [place] [address] Rubens Rivera Jr., D.O. [address] [place], [place] [id number] Chronic Kidney Disease Stage 1 Glomerular Filtration [...] alcohol) 1-2 drinks per week on average [facility] Utilities Answer Date Recorded In the past 12 months has [employer], gas, oil, or water [employer] threatened to shut off services in your [...] often do you attend chur ch or hinduism services? 1 to 4 times per year 08/19/2022 Do you belong to any clubs o r organizations such as religious groups, unions, fraternal or athletic groups, or [...] Answer Date Recorded PHQ-2 Score 0 07/16/2023 [facility] - Occupational [...] your living situation today? [facility] 07/20/2023 Education Answer [...] with meals. 180 tablet 3 10/09/2022 omega 7-elg-vgy-fish oil 100-160-1,000 mg capsule Take by mouth [...] Visit Department of Community Internal Medicine in [place], [place] [address] [address] Brea Augustin P.A.-C. 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 LAB BLOOD AD [facility] [address] [place] [address], [facility] [place] [facility] [address] [place] [address] * Ferritin (08/14/2023 8:11 AM CDT) Ferritin, S 31 11 - 328 mcg/L 08/14/2023 2:14 PM CDT OWAT Comment: Biotin has been identified by the grain sacker as a potential interfering substance. Higher concentrations of biotin may be found in multivitamins, hair/nail supplements, and workout supplements. If the result does not match clinical observations, repeat testing after patient refrains from the use of supplements for at least 12 hours. Blood (Blood, Venous) 08/14/2023 8:11 AM CDT 08/14/2023 1:16 PM CDT Carmen Shaver Jr.ONiya LAB BLOOD AD [facility] [address] [place] [address], [place] OWAT [facility] [place] [facility] in [place] [address] [place] [address] * (ABNORMAL) Hemoglobin A1c (08/14/2023 8:11 AM [...] Rivera Jr., D.O. LAB BLOOD AD [facility] [address] [place] [address], [facility] OWAT [facility] [place] [facility] [place] [address] * (ABNORMAL) Renal Function Panel (08/14/2023 8:11 [...] AM CDT 08/14/2023 1:14 PM CDT Narrative [facility] - 08/14/2023 3:29 PM CDT Specimen Information: Specimen ID: [id number] Specimen Type: Blood Specimen Collection Start Date: 08/14/2023 ??8:11 AM Specimen Received Date: 08/14/2023 ??1:14 PM Specimen ID: [id number] Specimen Type: Blood Specimen Collection Start Date: 08/14/2023 ??8:11 AM Specimen Received Date: 08/14/2023 ??3:11 PM Rubens Rivera Jr. DNiyaO. LAB BLOOD AD [facility] [address] [place] [address], [facility]AT [facility] [place] [facility] [place] [place] [address] [facility] - [facility] [place] [facility] [address] [place] [address] * Parathyroid Hormone (PTH) (08/14/2023 8:11 AM CDT) Parathyroid Hormone (PTH), S 25 15 - 65 pg/mL 08/14/2023 3:38 PM CDT AUST Comment: Biotin has been identified by the grain sacker as a potential interfering substance. Higher concentrations of biotin may be found in multivitamins, hair/nail supplements, and workout supplements. If the result does not match clinical observations, repeat testing after patient refrains from the use of supplements for at least 12 hours. Blood (Blood, Venous) 08/14/2023 8:11 AM CDT 08/14/2023 3:13 PM CDT Carmen Shaver Jr.O. LAB BLOOD AD [facility] [address] [place] [address], [facility] - [facility] [place] [facility] [address] [place] [address] * Lipid Panel (08/14/2023 8:11 AM CDT) [...] Rivera Jr., D.O. LAB BLOOD AD [facility] [address] [place] [address], [facility]AT [facility] [place] [facility] [place] [address] [place] [address] * CBC with Differential, Blood (08/14/2023 8:11 [...] 8:11 AM CDT 08/14/2023 8:11 AM CDT Carmen Shaver Jr.ONiya LAB BLOOD AD [facility] [address] [place] [address], [facility] FB60 [facility] [place] [facility] in [place] [address] [place] [address] documented in this encounter Visit Diagnoses Diagnosis [...] documented as of this encounter Care Teams [employer] Relationship Specialty Start Date End Date Brea Augustin P.A.-C. [address] [place] [address] PCP - General 04/13/22 documented as of this encounter
[2023-09-11] MEDS: CLINDAMYCIN 900 MG/50 ML-D5W 900 MG/50 ML PIGGYBACK 100 MG IVPB (06:51)
[2023-09-11] MEDS: LACTATED RINGERS 1000 ML 1,000 ML 35 ML IV (06:55)
[2023-09-11] MEDS: SODIUM CHLORIDE 0.9 % (FLUSH) 10 ML SYRINGE IVF (07:19)
[2023-09-11] MEDS: BUPIVACAINE 0.5 %/EPI 1:200K 30 ML INJECTION ×2 (07:20→07:21)
--- NOTE | 2023-09-11 08:03 | PM.ORPRC ---
Procedure Note Date of procedure: 09/11/23 Procedure: Preop diagnosis: Left upper extremity de quervain's tenosynovitis Postop diagnosis: Left upper extremity de quervain's tenosynovitis Procedure: Left upper extremity 1st dorsal compartment release Anesthesia: Local Surgeon: Randy Sierra MD hotel assistant general manager: SHEILA King EBL: 2 mL Complications: None Specimens: None Drains: None Indications: The patient has a history of left upper extremity de quervain's tenosynovitis symptoms. Despite appropriate nonoperative management consisting of bracing and occupational therapy they continue to have symptoms. Operative intervention was recommended. The risks, benefits alternatives and expected outcomes were discussed in detail. These included but were not limited to: Infection, bleeding, injury to blood vessel or nerve, venous thromboembolism. All questions were answered to their satisfaction. The patient was placed supine on the operating room table. Local anesthesia was established with 0.5% Marcaine without epinephrine and 2% lidocaine without epinephrine. The upper extremity was prepped and draped in usual sterile fashion. The limb was elevated, the forearm pneumatic tourniquet was inflated to 250 mm of mercury. A longitudinal incision was made centered over the 1st dorsal compartment. Subcutaneous dissection was taken with tenotomy scissors to the 1st dorsal compartment. Branches of the radial sensory nerve were protected and retracted out of the field. The retinaculum over the 1st dorsal compartment was divided longitudinally. The tenosynovium surrounding the tendons of the 1st dorsal compartment was debrided with the tenotomy scissors. There were 2 septae dividing the 1st dorsal compartment. These were excised with the scalpel and rongeur. The edges of the retinaculum were resected with the scalpel. Some of the fibers of the EPB were degenerative, these were debrided with tenotomy scissors. The wound was irrigated with normal saline. It was closed with 3-0 Vicryl deep and 3-0 Monocryl in a subcuticular fashion. Glue was used to seal the skin. The tourniquet was released. A dry dressing and thumb spica splint were applied. Sponge and needle counts were correct x 2. The patient tolerated the procedure well, there were no apparent complications. They were sent to same day surgery in satisfactory condition. Plan: Use of the hand as tolerates. Discontinue the intraoperative dressing on postoperative day 3 and may get the wound wet as tolerates. Follow up in the office in 1-2 weeks for a wound check.
== END 2023-09-11 08:33 | disposition home or self-care (01) ==
LOC: OR 06:11
PROVIDERS: PCP Internal Medicine; Visit Provider Orthopaedic Surgery
PROC: (CPT 25000; principal; 2023-09-11 07:15)
DX: M65.4 Radial styloid tenosynovitis [de Quervain] (principal)
CPT/HCPCS: 25000; A4580; J0736; J3490; J7120

== ENCOUNTER 2024-08-26 06:06 | Day surgery (SDC) | payer MEDICARE, BC, SELFPAY ==
[2024-08-26] VITALS (14 sets, daily range): BP systolic 128–164; BP diastolic 53–76; PULSE 46–76; RESP 14–17; TEMP 36.3–36.7; O2SAT 92–100
[2024-08-26] MEDS: LACTATED RINGERS 1000 ML 1,000 ML 100 ML IV (06:40)
[2024-08-26] MEDS: SODIUM CHLORIDE 0.9 % (FLUSH) 10 ML SYRINGE IVF (06:41)
[2024-08-26] MEDS: CEFAZOLIN 1 GM inj IVP (07:26)
--- NOTE | 2024-08-26 07:35 | P.ANES_ITS ---
Anesthesia Charges Start Date/Time Anesthesia Start Date: 08/26/24 Anesthesia Start Time: 07:15 Stop Date/Time Anesthesia Stop Date: 08/26/24 Anesthesia Stop Time: 08:35 Summary Extremes of Age - Over 70 or under 1: MDA Coding CPT Codes CPT Codes: ANESTH KNEE JOINT SURGERY - 19071 ([id number]) P2 - PATIENT W/MILD SYST DISEASE, QK - SOFTWARE MAINTENANCE ENGINEER 2-4 CNCRNT ANES PROC, QX - COUNSELOR AIDE SVC W/ MD MED DIRECTION Additional Codes: Summary - Extremes of Age - Over 70 or under 1: MDA ([id number])
--- NOTE | 2024-08-26 07:35 | W.ANESCHARGE ---
Anesthesia Charges Start Date/Time Anesthesia Start Date: 08/26/24 Anesthesia Start Time: 07:15 Stop Date/Time Anesthesia Stop Date: 08/26/24 Anesthesia Stop Time: 08:35 Summary Extremes of Age - Over 70 or under 1: MDA Coding CPT Codes CPT Codes: ANESTH KNEE JOINT SURGERY - 74599 ([id number]) P2 - PATIENT W/MILD SYST DISEASE, QK - ROAD BOSS 2-4 CNCRNT ANES PROC, QX - CERTIFIED MEDICAL TRANSCRIPTIONIST SVC W/ MD MED DIRECTION Additional Codes: Summary - Extremes of Age - Over 70 or under 1: MDA ([id number])
[2024-08-26] MEDS: BUPIVACAINE 0.25% 30 ML INJECTION (08:00)
--- NOTE | 2024-08-26 08:21 | PM.ORPRC ---
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 Operative intervention was recommended. The risks, benefits and expected outcomes were discussed in detail. These included but were not limited to: Infection, bleeding, injury to blood vessel or nerve, venous thromboembolism. All questions were answered to their satisfaction. PROCEDURE: Spinal anesthesia was administered. The patient was placed supine on the operating room table. The right lower extremity was prepped and draped in the usual sterile fashion. The limb was exsanguinated with the Stephon bandage. The pneumatic tourniquet was inflated to 225 mmHg. A standard anterolateral portal was established. The arthroscope was introduced. The working portal was established anteromedially. Diagnostic arthroscopy was performed with findings as follows: The patellar component is intact with circumferential scarring surrounding it. The femoral component is normal, the tibial polyethylene is normal. The scarring posterior to the patellar tendon was debrided with the radiofrequency probe and shaver. A superolateral portal was placed. Then we aggressively debrided around the patellar component and posterior to the quads tendon with the shaver and radiofrequency probe. Arthroscopic instruments were removed, the portal sites were closed with a 3-0 nylon. Portals were injected with 0.25% Marcaine without epinephrine. A dry dressing was applied, the tourniquet was released. Sponge and needle counts were correct x 2. The patient tolerated the procedure well. There were no apparent complications. They were carefully transferred to the hospital bed and taken to the postanesthesia care unit in satisfactory condition. PLAN: The patient will be discharged to home. They may weightbear as tolerates. Range of motion will be unrestricted. They will follow up in the office in 2 weeks for a wound check and suture removal.
--- NOTE | 2024-08-26 08:33 | P.ANES_ITS ---
Anesthesia Charges Start Date/Time Anesthesia Start Date: 08/26/24 Anesthesia Start Time: 07:15 Stop Date/Time Anesthesia Stop Date: 08/26/24 Anesthesia Stop Time: 08:35 Summary Extremes of Age - Over 70 or under 1: CORE MAKER Coding CPT Codes CPT Codes: ANESTH KNEE JOINT SURGERY - 61933 ([id number]) P2 - PATIENT W/MILD SYST DISEASE, QK - TEARER PRESS CLIPPING 2-4 CNCRNT ANES PROC, QX - CORE MAKER SVC W/ MD MED DIRECTION Additional Codes: Summary - Extremes of Age - Over 70 or under 1: CORE MAKER ([id number])
--- NOTE | 2024-08-26 08:33 | W.ANESCHARGE ---
Anesthesia Charges Start Date/Time Anesthesia Start Date: 08/26/24 Anesthesia Start Time: 07:15 Stop Date/Time Anesthesia Stop Date: 08/26/24 Anesthesia Stop Time: 08:35 Summary Extremes of Age - Over 70 or under 1: PREFINISH OPERATOR Coding CPT Codes CPT Codes: ANESTH KNEE JOINT SURGERY - 49895 ([id number]) P2 - PATIENT W/MILD SYST DISEASE, QK - CORPORATE SECURITY MANAGER 2-4 CNCRNT ANES PROC, QX - PREFINISH OPERATOR SVC W/ MD MED DIRECTION Additional Codes: Summary - Extremes of Age - Over 70 or under 1: PREFINISH OPERATOR ([id number])
[2024-08-26] MEDS: fentaNYL 100 MCG/2 ML inj 50 MCG IVP ×2 (08:55→09:03)
== END 2024-08-26 10:25 | disposition home or self-care (01) ==
LOC: OR 06:07
PROVIDERS: PCP Internal Medicine; Visit Provider Orthopaedic Surgery
PROC: (CPT 29870; principal; 2024-08-26 07:15)
DX: M25.861 Other specified joint disorders, right knee (principal); E11.9 Type 2 diabetes mellitus without complications; Z79.84 Long term (current) use of oral hypoglycemic drugs; Z79.82 Long term (current) use of aspirin; I10 Essential (primary) hypertension
CPT/HCPCS: 29877; 01400; 82962; 99100; J0665; J0690; J1100; J2250; J2405; J2704; J3010; J7120